=== PATIENT | female | born 1965 | race African-American/Black ===

== ENCOUNTER 2016-09-05 10:01 | Inpatient (IN) | payer OTHER ==
[2016-09-05 11:18] VITALS: BMI 25.7
--- NOTE | 2016-09-05 11:53 | HP ---
CIWA Score - CIWA Score Nausea/Vomitin Muscle Tremors: 3 Anxiety: 3 Agitation: 3 Paroxysmal Sweats: 2 Orientation: 0-Oriented Tacttile Disturbances: 2-Mild Itch/Numbness/Burn Auditory Disturbances: 2-Mild Harshness/Frighten Visual Disturbances: 2-Mild Sensitivity Headache: 2-Mild CIWA-Ar Total Score: 22 Admission ROS BHS - HPI Chief Complaint: i need help to stop drinking alcohol,cocaine dependence,heroin abused,mmtp Allergies/Adverse Reactions: Allergies Allergy/AdvReac Type Severity Reaction Status Date / Time No Known Allergies Allergy Verified 09/05/16 11:40 History of Present Illness: this 51 years old female with alcohol,cocaine dependence,heroin abused,mmtp 60 mgs/day,last medicated today, degenerative arthritis of right knee s/p artroscopic surgery of eight knee nicotine dependence hiv sine 2008 longest period of sobriety 19 years asthma ambulation with cane Exam Limitations: No Limitations - Ebola screening Have you traveled outside of the country in the last 21 days: No Have you had contact with anyone from an Ebola affected area: No Have you been sick,other than usual withdrawal symptoms: No Do you have a fever: No - Review of Systems Constitutional: Chills, Loss of Appetite, Malaise, Night Sweats, Changes in sleep, Weakness EENT: reports: Tearing, Nose Congestion Respiratory: reports: No Symptoms reported (asthma history) Cardiac: reports: No Symptoms Reported GI: reports: Diarrhea, Nausea, Vomiting, Abdominal cramping : reports: No Symptoms Reported Musculoskeletal: reports: Back Pain, Joint Pain, Muscle Pain, Joint Stiffness Integumentary: reports: Dryness Neuro: reports: Headache, Tremors Endocrine: reports: No Symptoms Reported Hematology: reports: No Symptoms Reported (hiv) Psychiatric: reports: No Sypmtoms Reported Patient History - Patient Medical History Hx Anemia: No Hx Asthma: Yes (on albuterol inhaler) Hx Chronic Obstructive Pulmonary Disease (COPD): No Hx Cancer: No Hx Cardiac Disorders: No Hx Congestive Heart Failure: No Hx Hypertension: No Hx Hypercholesterolemia: No HX Cerebrovascular Accident: No Hx Seizures: No Hx Dementia: No Hx Diabetes: No Hx Gastrointestinal Disorders: No Hx Liver Disease: No Hx Genitourinary Disorders: No Hx Sexually Transmitted Disorders: No Hx Renal Disease (ESRD): No Hx Thyroid Disease: No Hx Human Immunodeficiency Virus (HIV): Yes (since 2008) Hx Hepatitis C: Yes (treated) Hx Depression: No Hx Suicide Attempt: No Hx Bipolar Disorder: No Hx Schizophrenia: No Other Medical History: no suicidal,no homicidal,arthritis of right knee - Patient Surgical History Past Surgical History: Yes Hx Orthopedic Surgery: Yes (arthroscopc sugery of right knee) - PPD History Previous Implant?: Yes Documented Results: Negative w/o proof Implanted On Prior R Admission?: No PPD to be Administered?: Yes - Reproductive History Patient is a Female of Child Bearing Age (11 -55 yrs old): Yes Patient : No - Smoking Cessation Smoking history: Current every day smoker Have you smoked in the past 12 months: Yes Aproximately how many cigarettes per day: 7 Cigars Per Day: 0 Hx Chewing Tobacco Use: No Initiated information on smoking cessation: Yes 'Breaking Loose' booklet given: 09/05/16 - Substance & Tx. History Hx Alcohol Use: Yes Hx Substance Use: Yes Substance Use Type: Alcohol, Cocaine Hx Substance Use Treatment: Yes (1987) - Substances Abused Alcohol Route: Oral Frequency: Daily Amount used: 2 6PKS BEER Age of first use: 14 Date of Last Use: 09/04/16 Cocaine Route: Smoking Frequency: Daily Amount used: $80-100 Age of first use: 15 Date of Last Use: 09/04/16 Heroin Route: Injection Frequency: Daily Amount used: 2-3 BAGS Age of first use: 16 Date of Last Use: 09/04/16 Family Disease History - Family Disease History Family History: Denies Admission Physical Exam [facility] - Vital Signs Vital Signs: Vital Signs - 24 hr 09/05/16 11:11 Temperature 97.8 F Pulse Rate 74 Respiratory 18 Rate Blood Pressure 124/72 - Physical General Appearance: Yes: Tremorous, Irritable, Sweating, Anxious HEENTM: Yes: Nasal Congestion Respiratory: Yes: Lungs Clear Neck: Yes: Within Normal Limits Breast: Yes: Breast Exam Deferred Cardiology: Yes: Within Normal Limits, Regular Rhythm, Regular Rate, S1, S2 Abdominal: Yes: Within Normal Limits, Normal Bowel Sounds, Non Tender, Flat, Soft Genitourinary: Yes: Within Normal Limits Back: Yes: Muscle Spasm Musculoskeletal: Yes: Back pain, Joint Stiffness (a/p arthroscopic surgery of right knee for degenerativ earthritis), Muscle Pain Extremities: Yes: Tremors (degenerative srthritis of right knee ambulation with cane) 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: 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 NML intact, Fully Oriented, Alert, Motor Strength 5/5 Integumentary: Yes: Dry Lymphatic: Yes: Within Normal Limits - Diagnostic (1) Alcohol dependence with uncomplicated withdrawal Current Visit: Yes Status: Acute (2) Cocaine dependence Current Visit: Yes Status: Acute (3) Methadone maintenance therapy patient Current Visit: Yes Status: Acute (4) HIV (human immunodeficiency virus infection) Current Visit: Yes Status: Acute (5) Use of cane as ambulatory aid Current Visit: Yes Status: Acute (6) Hepatitis C Current Visit: Yes Status: Acute (7) Asthma Current Visit: Yes Status: Acute (8) Syncope Current Visit: Yes Status: Acute (9) Positive PPD, treated Current Visit: Yes Status: Acute (10) Frequent falls Current Visit: Yes Status: Acute (11) Degenerative arthritis of right knee Current Visit: Yes Status: Acute Cleared for Admission [facility] - Detox or Rehab [facility] Level of Care: Medically Managed Detox Regimen/Protocol: Librium [facility] Breath Alcohol Content Breath Alcohol Content: 0 Urine Pregancy Test - Result Urine Test Results: Negative- NO Line Present Urine Drug Screen - Results Drug Screen Negative: No Urine Drug Screen Results: ANSLEY-Cocaine, OPI-Opiates, BZO-Benzodiazepines, MTD- Methadone, TCA-Tricyclic Antidepress, OXY-Oxycodone
[2016-09-05] MEDS ORDERED: hydrOXYzine PAMOATE 50 MG CAPSULE (FP) PO PRN (12:08)
[2016-09-05] MEDS ORDERED: MAG HYDROX/AL HYDROX/SIMETH 30 ML UNIT-DOSE CUP PO PRN (12:08)
[2016-09-05] MEDS ORDERED: MAGNESIUM CITRATE 300 ML BOTTLE PO PRN (12:08)
[2016-09-05] MEDS ORDERED: MENTHOL/PHENOL 1 EACH UD MM PRN (12:08)
[2016-09-05] MEDS ORDERED: MAGNESIUM HYDROX 2400MG/30ML ORAL SUSPENSION 30 ML CUP PO PRN (12:08)
[2016-09-05] MEDS ORDERED: ACETAMINOPHEN 325 MG TABLET (FP) PO PRN (12:08)
[2016-09-05] MEDS ORDERED: P-EPHED 60MG/TRIPROLIDI 2.5MG TABLET PO PRN (12:08)
[2016-09-05] MEDS ORDERED: LOPERAMIDE HCL 2 MG CAPSULE PO PRN (12:08)
[2016-09-05] MEDS ORDERED: guaiFENesin/D-METHORPHAN HB 10 ML UNIT-DOSE CUPS PO PRN (12:08)
[2016-09-05] MEDS ORDERED: chlordiazePOXIDE HCL 25 MG CAPSULE PO PRN (12:08)
[2016-09-05] MEDS ORDERED: ALBUTEROL SO4 6.7 GM HFA INHALER IH PRN (12:26)
[2016-09-05] MEDS ORDERED: chlordiazePOXIDE HCL 25 MG CAPSULE PO ONE (14:16)
[2016-09-05] MEDS: IBUPROFEN 400 MG TABLET (FP) PO PRN (14:32)
[2016-09-05] MEDS: NICOTINE 21 MG/24 HOURS TOPICAL PATCH TD SCH (15:33)
[2016-09-05] MEDS: chlordiazePOXIDE HCL 25 MG CAPSULE PO SCH ×2 (17:48→22:12)
[2016-09-05 19:57] LABS: URINE APPEARANCE CLOUDY; URINE BILIRUBIN NEGATIVE (NEGATIVE); URINE BLOOD NEGATIVE (NEGATIVE); URINE COLOR AMBER; URINE GLUCOSE (UA) NEGATIVE (NEGATIVE); URINE KETONE NEGATIVE (NEGATIVE); URINE NITRITE NEGATIVE (NEGATIVE); URINE UROBILINOGEN NEGATIVE E.U./dl (0.2-1.0)
[2016-09-05 20:00] LABS: URINE LEUK ESTERASE TRACE (NEGATIVE); URINE PROTEIN 1+ (NEGATIVE)
[2016-09-05 20:06] LABS: CALCIUM OXALATE CRYSTALS RARE /hpf (NONE SEEN); URINE HYALINE CAST 25 /lpf; URINE MUCUS MANY; URINE RBC 1 /hpf (0-3); URINE WBC 20 /hpf (3-5)
[2016-09-05] MEDS: THIAMINE HCL 100 MG TABLET (FP) PO SCH (22:12)
[2016-09-06] MEDS ORDERED: METHADONE HCL 10 MG TABLET ONE (05:11)
[2016-09-06] MEDS ORDERED: METHADONE HCL 40 MG DISPERSABLE TABLET ONE (05:12)
[2016-09-06] MEDS ORDERED: METHADONE HCL 40 MG DISPERSABLE TABLET PO SCH (06:00)
[2016-09-06] MEDS: METHADONE 40 MG, METHADONE 20 MG PO SCH (07:37)
[2016-09-06] MEDS: chlordiazePOXIDE HCL 25 MG CAPSULE PO SCH ×4 (07:38→22:25)
[2016-09-06] MEDS: PRENATAL VITAMINS W/ FOLIC ACID TABLET (FP) PO SCH (10:33)
[2016-09-06] MEDS: NICOTINE 21 MG/24 HOURS TOPICAL PATCH TD SCH (10:33)
[2016-09-06] MEDS: EMTRICITAB/RILPIVIRINE/TENOFOV 1 EACH TABLET PO SCH (10:34)
--- NOTE | 2016-09-06 10:38 | EKG ---
Test Reason : Blood Pressure : / mmHG Vent. Rate : 058 BPM Atrial Rate : 058 BPM P-R Int : 150 ms QRS Dur : 080 ms QT Int : 392 ms P-R-T Axes : 072 040 039 degrees QTc Int : 384 ms POOR DATA QUALITY, INTERPRETATION MAY BE ADVERSELY AFFECTED SINUS BRADYCARDIA MINIMAL VOLTAGE CRITERIA FOR LVH, MAY BE NORMAL VARIANT NONSPECIFIC ST AND T WAVE ABNORMALITY ABNORMAL ECG NO PREVIOUS ECGS AVAILABLE Confirmed by TERESE HYATT, EITAN ([id number]) on 09/06/2016 10:37:57 AM Referred By: Reji Land Confirmed By:EITAN GUDINO MD
[2016-09-06 10:41] LABS: MCH 26.8 pg (25.7-33.7); MCHC 32.8 g/dl (32.0-36.0); MEAN CELL VOLUME 81.7 fl (80-96); PLATELET COUNT 236 K/MM3 (134-434); RDW 14.9 % (11.6-15.6); WHITE BLOOD COUNT 4.3 K/mm3 (4.0-10.0)
[2016-09-06 10:50] LABS: CALCIUM 8.8 mg/dL (8.5-10.1)
[2016-09-06 11:00] LABS: ALBUMIN 3.9 g/dl (3.4-5.0); BILIRUBIN,TOTAL 0.3 mg/dL (0.2-1.0); CREATININE 1.2 mg/dL (0.55-1.02); TOT PROT 8.1 g/dl (6.4-8.2)
--- NOTE | 2016-09-06 12:29 | PN ---
S CIWA - CIWA Score Nausea/Vomitin Muscle Tremors: 3 Anxiety: 3 Agitation: 3 Paroxysmal Sweats: 1-Minimal Palms Moist Orientation: 0-Oriented Tacttile Disturbances: 1-Very Mild Itch/Numbness Auditory Disturbances: 1-Very Mild Visual Disturbances: 1-Very Mild Sensitivity Headache: 2-Mild CIWA-Ar Total Score: 18 S Progress Note (SOAP) Subjective: ALERT,IRRITABLE,ANXIOUS,INTERRUPTED SLEEP,TREMOR,PAIN IN THE BODY,BACK Objective: 09/06/16 12:25 Vital Signs Temperature 97.7 F 09/06/16 10:22 Pulse Rate 82 09/06/16 10:22 Respiratory Rate 16 09/06/16 10:22 Blood Pressure 131/71 09/06/16 10:22 O2 Sat by Pulse Oximetry (%) EKG NSR,LVH, ARTEFACT,NON SPECIFIC T NO CHEST PAIN,NO SOB,NO DIZZINESS Laboratory Last Values WBC 4.3 K/mm3 (4.0-10.0) 09/06/16 06:00 RBC 4.79 M/mm3 (3.60-5.2) 09/06/16 06:00 Hgb 12.8 GM/dL (10.7-15.3) 09/06/16 06:00 Hct 39.1 % (32.4-45.2) 09/06/16 06:00 MCV 81.7 fl (80-96) 09/06/16 06:00 MCHC 32.8 g/dl (32.0-36.0) 09/06/16 06:00 RDW 14.9 % (11.6-15.6) 09/06/16 06:00 Plt Count 236 K/MM3 (134-434) 09/06/16 06:00 MPV 9.0 fl (7.5-11.1) 09/06/16 06:00 Sodium 138 mmol/L (136-145) 09/06/16 06:00 Potassium 3.9 mmol/L (3.5-5.1) 09/06/16 06:00 Chloride 104 mmol/L (98-107) 09/06/16 06:00 Carbon Dioxide 27 mmol/L (21-32) 09/06/16 06:00 Anion Gap 7 (8-16) L 09/06/16 06:00 BUN 17 mg/dL (7-18) 09/06/16 06:00 Creatinine 1.2 mg/dL (0.55-1.02) H 09/06/16 06:00 Creat Clearance w eGFR 46.99 (>60) 09/06/16 06:00 Random Glucose 115 mg/dL (74-106) H 09/06/16 06:00 Calcium 8.8 mg/dL (8.5-10.1) 09/06/16 06:00 Total Bilirubin 0.3 mg/dL (0.2-1.0) 09/06/16 06:00 AST 15 U/L (15-37) 09/06/16 06:00 ALT 20 U/L (12-78) 09/06/16 06:00 Alkaline Phosphatase 120 U/L (45-117) H 09/06/16 06:00 Total Protein 8.1 g/dl (6.4-8.2) 09/06/16 06:00 Albumin 3.9 g/dl (3.4-5.0) 09/06/16 06:00 Urine Color Karla 09/05/16 15:00 Urine Appearance Cloudy 09/05/16 15:00 Urine pH 5.0 (5.0-8.0) 09/05/16 15:00 Ur Specific [place] 1.026 (1.001-1.035) 09/05/16 15:00 Urine Protein 1+ (NEGATIVE) H 09/05/16 15:00 Urine Glucose (UA) Negative (NEGATIVE) 09/05/16 15:00 Urine Ketones Negative (NEGATIVE) 09/05/16 15:00 Urine Blood Negative (NEGATIVE) 09/05/16 15:00 Urine Nitrite Negative (NEGATIVE) 09/05/16 15:00 Urine Bilirubin Negative (NEGATIVE) 09/05/16 15:00 Urine Urobilinogen Negative E.U./dl (0.2-1.0) 09/05/16 15:00 Ur Leukocyte Esterase Trace (NEGATIVE) H 09/05/16 15:00 Urine RBC 1 /hpf (0-3) 09/05/16 15:00 Urine WBC 20 /hpf (3-5) 09/05/16 15:00 Ur Epithelial Cells Many /hpf (FEW) 09/05/16 15:00 Calcium Oxalate Crystal Rare /hpf (NONE SEEN) 09/05/16 15:00 Amorphous Urates Moderate /hpf (NONE SEEN) 09/05/16 15:00 Hyaline Casts 25 /lpf 09/05/16 15:00 Urine Mucus Many 09/05/16 15:00 RPR Titer Nonreactive (NONREACTIVE) 09/06/16 06:00 Assessment: 09/06/16 12:27 WITHDRAWAL SYMPTOM Plan: CONTINUE DETOX,ENCOURAGE ORAL FLUID,REPEAT UA,REPEAT CMP
[2016-09-06] MEDS: THIAMINE HCL 100 MG TABLET (FP) PO SCH (22:25)
[2016-09-07] MEDS ORDERED: METHADONE HCL 40 MG DISPERSABLE TABLET ONE (03:31)
[2016-09-07] MEDS ORDERED: METHADONE HCL 10 MG TABLET ONE (03:31)
[2016-09-07] MEDS: chlordiazePOXIDE HCL 25 MG CAPSULE PO SCH ×2 (06:14→10:06)
[2016-09-07] MEDS: METHADONE 40 MG, METHADONE 20 MG PO SCH (06:14)
[2016-09-07] MEDS: NICOTINE 21 MG/24 HOURS TOPICAL PATCH TD SCH (10:06)
[2016-09-07] MEDS: EMTRICITAB/RILPIVIRINE/TENOFOV 1 EACH TABLET PO SCH (10:06)
[2016-09-07] MEDS: PRENATAL VITAMINS W/ FOLIC ACID TABLET (FP) PO SCH (10:06)
[2016-09-07 10:56] LABS: ALBUMIN 3.3 g/dl (3.4-5.0); ALK PHOS 97 U/L (45-117); ANION GAP 10 (8-16); BILIRUBIN,TOTAL 0.3 mg/dL (0.2-1.0); CALCIUM 8.6 mg/dL (8.5-10.1); CO2 26 mmol/L (21-32); CREATININE 0.9 mg/dL (0.55-1.02); GLUCOSE,RANDOM 85 mg/dL (74-106); SGOT/AST 12 U/L (15-37); SGPT/ALT 16 U/L (12-78); TOT PROT 7.3 g/dl (6.4-8.2)
--- NOTE | 2016-09-07 13:04 | PN ---
S CIWA - CIWA Score Nausea/Vomitin Muscle Tremors: 3 Anxiety: 3 Agitation: 2 Paroxysmal Sweats: 1-Minimal Palms Moist Orientation: 0-Oriented Tacttile Disturbances: 1-Very Mild Itch/Numbness Auditory Disturbances: 1-Very Mild Visual Disturbances: 2-Mild Sensitivity Headache: 2-Mild CIWA-Ar Total Score: 18 BHS Progress Note (SOAP) Subjective: ALERT,IRRITABLE,ANXIOUS,INTERRUPTED SLEEP,TREMOR Objective: 09/07/16 13:03 Vital Signs Temperature 97.1 F L 09/07/16 10:29 Pulse Rate 82 09/07/16 10:29 Respiratory Rate 16 09/07/16 10:29 Blood Pressure 125/57 09/07/16 10:29 O2 Sat by Pulse Oximetry (%) Laboratory Last Values WBC 4.3 K/mm3 (4.0-10.0) 09/06/16 06:00 RBC 4.79 M/mm3 (3.60-5.2) 09/06/16 06:00 Hgb 12.8 GM/dL (10.7-15.3) 09/06/16 06:00 Hct 39.1 % (32.4-45.2) 09/06/16 06:00 MCV 81.7 fl (80-96) 09/06/16 06:00 MCHC 32.8 g/dl (32.0-36.0) 09/06/16 06:00 RDW 14.9 % (11.6-15.6) 09/06/16 06:00 Plt Count 236 K/MM3 (134-434) 09/06/16 06:00 MPV 9.0 fl (7.5-11.1) 09/06/16 06:00 Sodium 143 mmol/L (136-145) 09/07/16 08:00 Potassium 4.0 mmol/L (3.5-5.1) 09/07/16 08:00 Chloride 107 mmol/L (98-107) 09/07/16 08:00 Carbon Dioxide 26 mmol/L (21-32) 09/07/16 08:00 Anion Gap 10 (8-16) 09/07/16 08:00 BUN 12 mg/dL (7-18) D 09/07/16 08:00 Creatinine 0.9 mg/dL (0.55-1.02) D 09/07/16 08:00 Creat Clearance w eGFR > 60 (>60) 09/07/16 08:00 Random Glucose 85 mg/dL (74-106) D 09/07/16 08:00 Calcium 8.6 mg/dL (8.5-10.1) 09/07/16 08:00 Total Bilirubin 0.3 mg/dL (0.2-1.0) 09/07/16 08:00 AST 12 U/L (15-37) L 09/07/16 08:00 ALT 16 U/L (12-78) 09/07/16 08:00 Alkaline Phosphatase 97 U/L (45-117) 09/07/16 08:00 Total Protein 7.3 g/dl (6.4-8.2) 09/07/16 08:00 Albumin 3.3 g/dl (3.4-5.0) L 09/07/16 08:00 Urine Color Karla 09/05/16 15:00 Urine Appearance Cloudy 09/05/16 15:00 Urine pH 5.0 (5.0-8.0) 09/05/16 15:00 Ur Specific [place] 1.026 (1.001-1.035) 09/05/16 15:00 Urine Protein 1+ (NEGATIVE) H 09/05/16 15:00 Urine Glucose (UA) Negative (NEGATIVE) 09/05/16 15:00 Urine Ketones Negative (NEGATIVE) 09/05/16 15:00 Urine Blood Negative (NEGATIVE) 09/05/16 15:00 Urine Nitrite Negative (NEGATIVE) 09/05/16 15:00 Urine Bilirubin Negative (NEGATIVE) 09/05/16 15:00 Urine Urobilinogen Negative E.U./dl (0.2-1.0) 09/05/16 15:00 Ur Leukocyte Esterase Trace (NEGATIVE) H 09/05/16 15:00 Urine RBC 1 /hpf (0-3) 09/05/16 15:00 Urine WBC 20 /hpf (3-5) 09/05/16 15:00 Ur Epithelial Cells Many /hpf (FEW) 09/05/16 15:00 Calcium Oxalate Crystal Rare /hpf (NONE SEEN) 09/05/16 15:00 Amorphous Urates Moderate /hpf (NONE SEEN) 09/05/16 15:00 Hyaline Casts 25 /lpf 09/05/16 15:00 Urine Mucus Many 09/05/16 15:00 RPR Titer Nonreactive (NONREACTIVE) 09/06/16 06:00 Assessment: 09/07/16 13:04 WITHDRAWAL SYMPTOM Plan: CONTINUE DETOX,REPEAT UA TODAY
[2016-09-07] MEDS: chlordiazePOXIDE 5 MG CAPSULE PO SCH ×2 (18:06→22:18)
[2016-09-07] MEDS: THIAMINE HCL 100 MG TABLET (FP) PO SCH (22:18)
[2016-09-08] MEDS ORDERED: METHADONE HCL 10 MG TABLET ONE (05:07)
[2016-09-08] MEDS ORDERED: METHADONE HCL 40 MG DISPERSABLE TABLET ONE (05:08)
[2016-09-08] MEDS: METHADONE 40 MG, METHADONE 20 MG PO SCH (05:48)
[2016-09-08] MEDS: chlordiazePOXIDE 5 MG CAPSULE PO SCH ×2 (05:48→12:08)
[2016-09-08] MEDS: EMTRICITAB/RILPIVIRINE/TENOFOV 1 EACH TABLET PO SCH (10:37)
[2016-09-08] MEDS: PRENATAL VITAMINS W/ FOLIC ACID TABLET (FP) PO SCH (10:37)
[2016-09-08] MEDS: NICOTINE 21 MG/24 HOURS TOPICAL PATCH TD SCH (10:38)
[2016-09-08 11:05] LABS: URINE APPEARANCE CLOUDY; URINE BILIRUBIN NEGATIVE (NEGATIVE); URINE BLOOD NEGATIVE (NEGATIVE); URINE COLOR YELLOW; URINE GLUCOSE (UA) NEGATIVE (NEGATIVE); URINE KETONE NEGATIVE (NEGATIVE); URINE LEUK ESTERASE NEGATIVE (NEGATIVE); URINE NITRITE NEGATIVE (NEGATIVE); URINE PROTEIN NEGATIVE (NEGATIVE); URINE UROBILINOGEN NEGATIVE E.U./dl (0.2-1.0)
--- NOTE | 2016-09-08 11:06 | PN ---
BHS Progress Note (SOAP) Subjective: headache sweats shakes sleepy interrupted sleep Objective: 09/08/16 11:05 Vital Signs Temperature 97.7 F 09/08/16 10:25 Pulse Rate 81 09/08/16 10:25 Respiratory Rate 16 09/08/16 10:25 Blood Pressure 128/74 09/08/16 10:25 O2 Sat by Pulse Oximetry (%) Laboratory Tests 09/05/16 09/06/16 09/06/16 15:00 06:00 06:00 WBC 4.3 RBC 4.79 Hgb 12.8 Hct 39.1 MCV 81.7 MCHC 32.8 RDW 14.9 Plt Count 236 MPV 9.0 Sodium 138 Potassium 3.9 Chloride 104 Carbon Dioxide 27 Anion Gap 7 L BUN 17 Creatinine 1.2 H Creat Clearance w eGFR 46.99 Random Glucose 115 H Calcium 8.8 Total Bilirubin 0.3 AST 15 ALT 20 Alkaline Phosphatase 120 H Total Protein 8.1 Albumin 3.9 Urine Color Karla Urine Appearance Cloudy Urine pH 5.0 Ur Specific [place] 1.026 Urine Protein 1+ H Urine Glucose (UA) Negative Urine Ketones Negative Urine Blood Negative Urine Nitrite Negative Urine Bilirubin Negative Urine Urobilinogen Negative Ur Leukocyte Esterase Trace H Urine RBC 1 Urine WBC 20 Ur Epithelial Cells Many Calcium Oxalate Crystal Rare Amorphous Urates Moderate Hyaline Casts 25 Urine Mucus Many RPR Titer 09/06/16 09/07/16 06:00 08:00 WBC RBC Hgb Hct MCV MCHC RDW Plt Count MPV Sodium 143 Potassium 4.0 Chloride 107 Carbon Dioxide 26 Anion Gap 10 BUN 12 D Creatinine 0.9 D Creat Clearance w eGFR > 60 Random Glucose 85 D Calcium 8.6 Total Bilirubin 0.3 AST 12 L ALT 16 Alkaline Phosphatase 97 Total Protein 7.3 Albumin 3.3 L Urine Color Urine Appearance Urine pH Ur Specific [place] Urine Protein Urine Glucose (UA) Urine Ketones Urine Blood Urine Nitrite Urine Bilirubin Urine Urobilinogen Ur Leukocyte Esterase Urine RBC Urine WBC Ur Epithelial Cells Calcium Oxalate Crystal Amorphous Urates Hyaline Casts Urine Mucus RPR Titer Nonreactive awake/alert ambulating no acute distress Assessment: 09/08/16 11:05 withdrawal sx Plan: continue detox increase fluids
[2016-09-08] MEDS: chlordiazePOXIDE HCL 10 MG CAPSULE PO SCH ×2 (17:18→22:03)
[2016-09-08] MEDS: diphenhydrAMINE HCL 50 MG CAPSULE PO PRN (22:03)
[2016-09-08] MEDS: IBUPROFEN 400 MG TABLET (FP) PO PRN (22:03)
[2016-09-08] MEDS: THIAMINE HCL 100 MG TABLET (FP) PO SCH (22:03)
[2016-09-09] MEDS ORDERED: METHADONE HCL 40 MG DISPERSABLE TABLET ONE (05:08)
[2016-09-09] MEDS ORDERED: METHADONE HCL 10 MG TABLET ONE (05:08)
[2016-09-09] MEDS: chlordiazePOXIDE HCL 10 MG CAPSULE PO SCH ×2 (05:48→10:42)
[2016-09-09] MEDS: METHADONE 40 MG, METHADONE 20 MG PO SCH (05:49)
--- NOTE | 2016-09-09 09:00 | DS ---
[facility] Detox Discharge Summary Admission Date: 09/05/16 Discharge Date: 09/09/16 - History Present History: Alcohol Dependence, MMTP - Physical Exam Results Vital Signs: Vital Signs Temperature 96.3 F L 09/09/16 06:52 Pulse Rate 78 09/09/16 06:52 Respiratory Rate 18 09/09/16 06:52 Blood Pressure 102/75 09/09/16 06:52 O2 Sat by Pulse Oximetry (%) - Treatment Hospital Course: Detox Protocol Followed, Detoxed Safely, Responded well, Discharged Condition Good - Medication Discharge Medications: Ambulatory Orders Emtricitab/Rilpivirine/Tenofov [Complera -] 1 each PO DAILY 09/05/16 - Diagnosis (1) Alcohol dependence with uncomplicated withdrawal Current Visit: Yes Status: Chronic (2) Asthma Current Visit: Yes Status: Chronic Qualifiers: Asthma severity: mild intermittent (3) Cocaine dependence Current Visit: Yes Status: Acute (4) Degenerative arthritis of right knee Current Visit: Yes Status: Chronic Qualifiers: Osteoarthritis type: unspecified Qualified Code(s): M17.9 - Osteoarthritis of knee, unspecified (5) HIV (human immunodeficiency virus infection) Current Visit: Yes Status: Chronic (6) Hepatitis C Current Visit: Yes Status: Chronic Qualifiers: Hepatic coma status: without hepatic coma (7) Methadone maintenance therapy patient Current Visit: Yes Status: Acute (8) Use of cane as ambulatory aid Current Visit: Yes Status: Acute - AMA Did Patient Leave Against Medical Advice: No
[2016-09-09] MEDS: EMTRICITAB/RILPIVIRINE/TENOFOV 1 EACH TABLET PO SCH (10:11)
[2016-09-09] MEDS: PRENATAL VITAMINS W/ FOLIC ACID TABLET (FP) PO SCH (10:11)
[2016-09-09] MEDS: NICOTINE 21 MG/24 HOURS TOPICAL PATCH TD SCH (10:12)
--- NOTE | 2016-09-09 14:07 | HP ---
MELINDA HYATT Rehab Assess/Revision - Admission History Admitted to Rehab from: [address] Date of Admission to Rehab: 09/09/2016 - Vital signs Vital Signs: Vital Signs Period Temp Pulse Resp BP Sys/Avila Pulse Ox Last 24 Hr 96.3 F-100.0 F 78-87 16-20 102-152/56-84 - Findings Detox History & Physical reviewed: Yes Concur with findings: Yes
[2016-09-09] MEDS: LIDOCAINE 5% TOPICAL PATCH TP SCH (15:35)
[2016-09-09] MEDS: IBUPROFEN 600 MG TABLET (FP) PO PRN (15:36)
[2016-09-09] MEDS: TOLNAFTATE 1% CREAM 15 GM TUBE TP SCH (21:32)
[2016-09-09] MEDS: THIAMINE HCL 100 MG TABLET (FP) PO SCH (21:32)
[2016-09-10] MEDS ORDERED: METHADONE HCL 40 MG DISPERSABLE TABLET ONE (03:25)
[2016-09-10] MEDS ORDERED: METHADONE HCL 10 MG TABLET ONE (03:25)
[2016-09-10] MEDS: METHADONE 40 MG, METHADONE 20 MG PO SCH (06:25)
[2016-09-10] MEDS: IBUPROFEN 600 MG TABLET (FP) PO PRN (06:27)
--- NOTE | 2016-09-10 10:09 | HP ---
Psychiatrist Admission - Data Date of interview: 09/10/16 Admission source: [address] [place] [address] Identifying data: This is the first admission to [address] [place] [address] rehabilitation for this 42 yo single AA mother of 1 adult son,[place] [address],supported by [facility]. Medical History: HIV+,Hep C,BA,Degenerative arthritis of R knee,3 knee surgeries. Psychiatric History: denies Physical/Sexual Abuse/Trauma History: denies Vital Signs: Vital Signs - 24 hr 09/09/16 09/10/16 09/10/16 13:13 00:30 03:30 Temperature 97.9 F Pulse Rate 80 Respiratory 18 18 18 Rate Blood Pressure 118/70 09/10/16 07:22 Temperature 97.6 F Pulse Rate 75 Respiratory 18 Rate Blood Pressure 146/91 Allergies/Adverse Reactions: Allergies Allergy/AdvReac Type Severity Reaction Status Date / Time No Known Allergies Allergy Verified 09/05/16 11:40 Date of last physical exam: 09/05/16 Concur with the findings of this exam: Yes - Substance Abuse/Tx History Hx Alcohol Use: Yes (reports drinkling since 14 yo,heavy since 38 yo.Heineken / beer) Hx Substance Use: Yes (cocaine and heroin(IV & sniffing) since [age] yo,MMTP 60 mg daily) Substance Use Type: Alcohol, Cocaine, Heroin Hx Substance Use Treatment: Yes (completed 2 years of [facility] program in 1982- 1984) - Admission Criteria Previous failed treatment: Yes Poor recovery environment: Yes Comorbidities: Yes Lacks judgement: Yes Mental Status Exam - Mental Status Exam Alert and Oriented to: Time, Place, Person Cognitive Function: Grossly Intact Patient Appearance: Well Groomed Mood: Euthymic Affect: Mood Congruent Patient Behavior: Cooperative Speech Pattern: Clear Voice Loudness: Normal Thought Process: Goal Oriented Thought Disorder: Not Present Hallucinations: Denies Suicidal Ideation: Denies Homicidal Ideation: Denies Insight/Judgement: Fair Sleep: Fair Appetite: Fair Muscle strength/Tone: Normal Gait/Station: Antalgic Additional Comments: Ambulating with cane due to R knee pain. Psychiatric Findings - Problem List ([place] 1, 2,3) (1) Cocaine dependence Current Visit: Yes Status: Chronic (2) Methadone maintenance therapy patient Current Visit: Yes Status: Acute (3) Positive PPD, treated Current Visit: Yes Status: Suspected (4) Alcohol dependence with uncomplicated withdrawal Current Visit: Yes Status: Chronic (5) Asthma Current Visit: Yes Status: Chronic Qualifiers: Asthma severity: mild intermittent (6) Degenerative arthritis of right knee Current Visit: Yes Status: Chronic Qualifiers: Osteoarthritis type: unspecified Qualified Code(s): M17.9 - Osteoarthritis of knee, unspecified (7) HIV disease Current Visit: Yes Status: Chronic (8) Hep C w/o coma, chronic Current Visit: Yes Status: Inactive - Initial Treatment Plan Initial Treatment Plan: Will monitor progress.
[2016-09-10] MEDS: LIDOCAINE 5% TOPICAL PATCH TP SCH (10:10)
[2016-09-10] MEDS: PRENATAL VITAMINS W/ FOLIC ACID TABLET (FP) PO SCH (10:10)
[2016-09-10] MEDS: NICOTINE 21 MG/24 HOURS TOPICAL PATCH TD SCH (10:10)
[2016-09-10] MEDS: TOLNAFTATE 1% CREAM 15 GM TUBE TP SCH ×2 (10:11→21:32)
[2016-09-10] MEDS: EMTRICITAB/RILPIVIRINE/TENOFOV 1 EACH TABLET PO SCH (10:12)
[2016-09-10] MEDS: THIAMINE HCL 100 MG TABLET (FP) PO SCH (21:32)
[2016-09-10] MEDS: diphenhydrAMINE HCL 50 MG CAPSULE PO PRN (21:32)
[2016-09-11] MEDS ORDERED: PT OWN MED DRAWER 7, Y5N ONE (08:37)
[2016-09-11] MEDS: METHADONE HCL 10 MG TABLET PO SCH ×2 (10:12→21:35)
[2016-09-11] MEDS: PRENATAL VITAMINS W/ FOLIC ACID TABLET (FP) PO SCH (10:13)
[2016-09-11] MEDS: EMTRICITAB/RILPIVIRINE/TENOFOV 1 EACH TABLET PO SCH (10:13)
[2016-09-11] MEDS: LIDOCAINE 5% TOPICAL PATCH TP SCH (10:13)
[2016-09-11] MEDS: NICOTINE 21 MG/24 HOURS TOPICAL PATCH TD SCH (10:14)
[2016-09-11] MEDS: TOLNAFTATE 1% CREAM 15 GM TUBE TP SCH ×2 (10:15→23:22)
[2016-09-11] MEDS: THIAMINE HCL 100 MG TABLET (FP) PO SCH (21:35)
[2016-09-12] MEDS: PRENATAL VITAMINS W/ FOLIC ACID TABLET (FP) PO SCH (10:37)
[2016-09-12] MEDS: EMTRICITAB/RILPIVIRINE/TENOFOV 1 EACH TABLET PO SCH (10:37)
[2016-09-12] MEDS: METHADONE HCL 10 MG TABLET PO SCH ×2 (10:38→21:44)
[2016-09-12] MEDS: LIDOCAINE 5% TOPICAL PATCH TP SCH (10:39)
[2016-09-12] MEDS: NICOTINE 21 MG/24 HOURS TOPICAL PATCH TD SCH (10:39)
[2016-09-12] MEDS: TOLNAFTATE 1% CREAM 15 GM TUBE TP SCH ×2 (10:40→21:45)
[2016-09-12] MEDS: IBUPROFEN 600 MG TABLET (FP) PO PRN (10:41)
[2016-09-12] MEDS: THIAMINE HCL 100 MG TABLET (FP) PO SCH (21:44)
[2016-09-13] MEDS: METHADONE HCL 10 MG TABLET PO SCH ×2 (09:16→21:34)
[2016-09-13] MEDS: LIDOCAINE 5% TOPICAL PATCH TP SCH (09:16)
[2016-09-13] MEDS: NICOTINE 21 MG/24 HOURS TOPICAL PATCH TD SCH (09:17)
[2016-09-13] MEDS: EMTRICITAB/RILPIVIRINE/TENOFOV 1 EACH TABLET PO SCH (09:17)
[2016-09-13] MEDS: PRENATAL VITAMINS W/ FOLIC ACID TABLET (FP) PO SCH (09:17)
[2016-09-13] MEDS: TOLNAFTATE 1% CREAM 15 GM TUBE TP SCH ×2 (09:18→21:35)
[2016-09-13] MEDS ORDERED: PT OWN MED DRAWER 7, Y5N ONE (20:30)
[2016-09-13] MEDS: THIAMINE HCL 100 MG TABLET (FP) PO SCH (21:34)
[2016-09-14] MEDS: IBUPROFEN 600 MG TABLET (FP) PO PRN (02:32)
[2016-09-14] MEDS: METHADONE HCL 10 MG TABLET PO SCH ×2 (10:17→21:30)
[2016-09-14] MEDS: METHYL SALICYLATE/MENTHOL OINT 30 GM TUBE TP SCH ×2 (10:17→21:31)
[2016-09-14] MEDS: PRENATAL VITAMINS W/ FOLIC ACID TABLET (FP) PO SCH (10:18)
[2016-09-14] MEDS: LIDOCAINE 5% TOPICAL PATCH TP SCH (10:19)
[2016-09-14] MEDS: NICOTINE 21 MG/24 HOURS TOPICAL PATCH TD SCH (10:19)
[2016-09-14] MEDS: EMTRICITAB/RILPIVIRINE/TENOFOV 1 EACH TABLET PO SCH (10:19)
[2016-09-14] MEDS: TOLNAFTATE 1% CREAM 15 GM TUBE TP SCH ×2 (10:20→21:31)
[2016-09-14] MEDS ORDERED: PT OWN MED DRAWER 7, Y5N ONE (20:17)
[2016-09-14] MEDS: THIAMINE HCL 100 MG TABLET (FP) PO SCH (21:30)
[2016-09-14] MEDS: diphenhydrAMINE HCL 50 MG CAPSULE PO PRN (21:32)
[2016-09-15] MEDS ORDERED: PT OWN MED DRAWER 7, Y5N ONE (09:02)
[2016-09-15] MEDS: NICOTINE 21 MG/24 HOURS TOPICAL PATCH TD SCH (10:27)
[2016-09-15] MEDS: LIDOCAINE 5% TOPICAL PATCH TP SCH (10:28)
[2016-09-15] MEDS: EMTRICITAB/RILPIVIRINE/TENOFOV 1 EACH TABLET PO SCH (10:28)
[2016-09-15] MEDS: METHYL SALICYLATE/MENTHOL OINT 30 GM TUBE TP SCH ×2 (10:28→21:49)
[2016-09-15] MEDS: PRENATAL VITAMINS W/ FOLIC ACID TABLET (FP) PO SCH (10:29)
[2016-09-15] MEDS: METHADONE HCL 10 MG TABLET PO SCH ×2 (10:29→21:48)
[2016-09-15] MEDS: TOLNAFTATE 1% CREAM 15 GM TUBE TP SCH ×2 (10:29→21:49)
[2016-09-15] MEDS: THIAMINE HCL 100 MG TABLET (FP) PO SCH (21:45)
[2016-09-15] MEDS: diphenhydrAMINE HCL 50 MG CAPSULE PO PRN (21:49)
[2016-09-16] MEDS: METHYL SALICYLATE/MENTHOL OINT 30 GM TUBE TP SCH ×2 (10:35→23:19)
[2016-09-16] MEDS: PRENATAL VITAMINS W/ FOLIC ACID TABLET (FP) PO SCH (10:36)
[2016-09-16] MEDS: EMTRICITAB/RILPIVIRINE/TENOFOV 1 EACH TABLET PO SCH (10:36)
[2016-09-16] MEDS: METHADONE HCL 10 MG TABLET PO SCH ×2 (10:36→23:19)
[2016-09-16] MEDS: NICOTINE 21 MG/24 HOURS TOPICAL PATCH TD SCH (10:37)
[2016-09-16] MEDS: TOLNAFTATE 1% CREAM 15 GM TUBE TP SCH ×2 (10:37→23:20)
[2016-09-16] MEDS: LIDOCAINE 5% TOPICAL PATCH TP SCH (10:56)
--- NOTE | 2016-09-16 13:35 | PN ---
S Progress Note Note: EDEMA OF FEET & ANKLES ALSO C/O DRY ITCHY EYES. Vital Signs - 8 hr 09/16/16 07:02 Temperature 98.2 F Pulse Rate 69 Respiratory 18 Rate Blood Pressure 157/88 Laboratory Last Values WBC 4.3 K/mm3 (4.0-10.0) 09/06/16 06:00 RBC 4.79 M/mm3 (3.60-5.2) 09/06/16 06:00 Hgb 12.8 GM/dL (10.7-15.3) 09/06/16 06:00 Hct 39.1 % (32.4-45.2) 09/06/16 06:00 MCV 81.7 fl (80-96) 09/06/16 06:00 MCHC 32.8 g/dl (32.0-36.0) 09/06/16 06:00 RDW 14.9 % (11.6-15.6) 09/06/16 06:00 Plt Count 236 K/MM3 (134-434) 09/06/16 06:00 MPV 9.0 fl (7.5-11.1) 09/06/16 06:00 Sodium 143 mmol/L (136-145) 09/07/16 08:00 Potassium 4.0 mmol/L (3.5-5.1) 09/07/16 08:00 Chloride 107 mmol/L (98-107) 09/07/16 08:00 Carbon Dioxide 26 mmol/L (21-32) 09/07/16 08:00 Anion Gap 10 (8-16) 09/07/16 08:00 BUN 12 mg/dL (7-18) D 09/07/16 08:00 Creatinine 0.9 mg/dL (0.55-1.02) D 09/07/16 08:00 Creat Clearance w eGFR > 60 (>60) 09/07/16 08:00 Random Glucose 85 mg/dL (74-106) D 09/07/16 08:00 Calcium 8.6 mg/dL (8.5-10.1) 09/07/16 08:00 Total Bilirubin 0.3 mg/dL (0.2-1.0) 09/07/16 08:00 AST 12 U/L (15-37) L 09/07/16 08:00 ALT 16 U/L (12-78) 09/07/16 08:00 Alkaline Phosphatase 97 U/L (45-117) 09/07/16 08:00 Total Protein 7.3 g/dl (6.4-8.2) 09/07/16 08:00 Albumin 3.3 g/dl (3.4-5.0) L 09/07/16 08:00 Urine Color Yellow 09/08/16 08:00 Urine Appearance Cloudy 09/08/16 08:00 Urine pH 5.0 (5.0-8.0) 09/08/16 08:00 Ur Specific [place] 1.021 (1.001-1.035) 09/08/16 08:00 Urine Protein Negative (NEGATIVE) 09/08/16 08:00 Urine Glucose (UA) Negative (NEGATIVE) 09/08/16 08:00 Urine Ketones Negative (NEGATIVE) 09/08/16 08:00 Urine Blood Negative (NEGATIVE) 09/08/16 08:00 Urine Nitrite Negative (NEGATIVE) 09/08/16 08:00 Urine Bilirubin Negative (NEGATIVE) 09/08/16 08:00 Urine Urobilinogen Negative E.U./dl (0.2-1.0) 09/08/16 08:00 Ur Leukocyte Esterase Negative (NEGATIVE) 09/08/16 08:00 Urine RBC 1 /hpf (0-3) 09/05/16 15:00 Urine WBC 20 /hpf (3-5) 09/05/16 15:00 Ur Epithelial Cells Many /hpf (FEW) 09/05/16 15:00 Calcium Oxalate Crystal Rare /hpf (NONE SEEN) 09/05/16 15:00 Amorphous Urates Moderate /hpf (NONE SEEN) 09/05/16 15:00 Hyaline Casts 25 /lpf 09/05/16 15:00 Urine Mucus Many 09/05/16 15:00 RPR Titer Nonreactive (NONREACTIVE) 09/06/16 06:00 LABS NOTED,REPEAT U/A P : LASIX & ALDACTONE & VISINE
[2016-09-16] MEDS: FUROSEMIDE 40 MG TABLET (FP) PO SCH (14:22)
[2016-09-16] MEDS: TETRAHYDROZOLINE HCL 1 DROP DROPS OU SCH ×2 (15:28→23:20)
[2016-09-16] MEDS ORDERED: PT OWN MED DRAWER 7, Y5N ONE (18:28)
[2016-09-16] MEDS: SPIRONOLACTONE 25 MG TABLET (FP) PO SCH (23:19)
[2016-09-16] MEDS: THIAMINE HCL 100 MG TABLET (FP) PO SCH (23:20)
[2016-09-17] MEDS ORDERED: PT OWN MED DRAWER 7, Y5N ONE ×2 (08:51→13:36)
[2016-09-17] MEDS: METHYL SALICYLATE/MENTHOL OINT 30 GM TUBE TP SCH ×2 (10:28→21:12)
[2016-09-17] MEDS: PRENATAL VITAMINS W/ FOLIC ACID TABLET (FP) PO SCH (10:28)
[2016-09-17] MEDS: FUROSEMIDE 40 MG TABLET (FP) PO SCH (10:28)
[2016-09-17] MEDS: EMTRICITAB/RILPIVIRINE/TENOFOV 1 EACH TABLET PO SCH (10:28)
[2016-09-17] MEDS: SPIRONOLACTONE 25 MG TABLET (FP) PO SCH ×2 (10:29→18:12)
[2016-09-17] MEDS: LIDOCAINE 5% TOPICAL PATCH TP SCH (10:30)
[2016-09-17] MEDS: NICOTINE 21 MG/24 HOURS TOPICAL PATCH TD SCH (10:30)
[2016-09-17] MEDS: TOLNAFTATE 1% CREAM 15 GM TUBE TP SCH ×2 (10:31→21:15)
[2016-09-17] MEDS: TETRAHYDROZOLINE HCL 1 DROP DROPS OU SCH ×4 (10:32→21:16)
[2016-09-17] MEDS ORDERED: METHADONE HCL 10 MG TABLET PO ONE (11:01)
[2016-09-17 14:21] LABS: URINE APPEARANCE SLCLOUDY; URINE BILIRUBIN NEGATIVE (NEGATIVE); URINE BLOOD NEGATIVE (NEGATIVE); URINE COLOR YELLOW; URINE GLUCOSE (UA) NEGATIVE (NEGATIVE); URINE KETONE NEGATIVE (NEGATIVE); URINE NITRITE NEGATIVE (NEGATIVE); URINE PROTEIN NEGATIVE (NEGATIVE); URINE UROBILINOGEN NEGATIVE E.U./dl (0.2-1.0)
[2016-09-17 14:24] LABS: URINE LEUK ESTERASE TRACE (NEGATIVE)
[2016-09-17 14:32] LABS: URINE MUCUS RARE; URINE WBC 3 /hpf (3-5)
[2016-09-17] MEDS: METHADONE HCL 10 MG TABLET PO SCH (21:14)
[2016-09-17] MEDS: THIAMINE HCL 100 MG TABLET (FP) PO SCH (21:16)
[2016-09-17] MEDS: diphenhydrAMINE HCL 50 MG CAPSULE PO PRN (23:29)
[2016-09-18] MEDS: NICOTINE 21 MG/24 HOURS TOPICAL PATCH TD SCH (09:56)
[2016-09-18] MEDS: METHADONE HCL 10 MG TABLET PO SCH ×2 (09:57→21:06)
[2016-09-18] MEDS: FUROSEMIDE 40 MG TABLET (FP) PO SCH (09:57)
[2016-09-18] MEDS: LIDOCAINE 5% TOPICAL PATCH TP SCH (09:57)
[2016-09-18] MEDS: PRENATAL VITAMINS W/ FOLIC ACID TABLET (FP) PO SCH (09:57)
[2016-09-18] MEDS: SPIRONOLACTONE 25 MG TABLET (FP) PO SCH ×2 (09:57→18:24)
[2016-09-18] MEDS: METHYL SALICYLATE/MENTHOL OINT 30 GM TUBE TP SCH ×2 (09:57→21:08)
[2016-09-18] MEDS: TETRAHYDROZOLINE HCL 1 DROP DROPS OU SCH ×4 (09:58→21:07)
[2016-09-18] MEDS: EMTRICITAB/RILPIVIRINE/TENOFOV 1 EACH TABLET PO SCH (09:58)
[2016-09-18] MEDS: TOLNAFTATE 1% CREAM 15 GM TUBE TP SCH ×2 (09:58→21:07)
[2016-09-18] MEDS: THIAMINE HCL 100 MG TABLET (FP) PO SCH (21:07)
[2016-09-18] MEDS: diphenhydrAMINE HCL 50 MG CAPSULE PO PRN (21:09)
[2016-09-19] MEDS ORDERED: PT OWN MED DRAWER 7, Y5N ONE ×4 (09:22→20:10)
[2016-09-19] MEDS: METHADONE HCL 10 MG TABLET PO SCH ×2 (09:48→21:10)
[2016-09-19] MEDS: METHYL SALICYLATE/MENTHOL OINT 30 GM TUBE TP SCH ×2 (09:48→21:10)
[2016-09-19] MEDS: TOLNAFTATE 1% CREAM 15 GM TUBE TP SCH ×2 (09:49→21:11)
[2016-09-19] MEDS: LIDOCAINE 5% TOPICAL PATCH TP SCH (09:50)
[2016-09-19] MEDS: FUROSEMIDE 40 MG TABLET (FP) PO SCH (09:50)
[2016-09-19] MEDS: EMTRICITAB/RILPIVIRINE/TENOFOV 1 EACH TABLET PO SCH (09:50)
[2016-09-19] MEDS: SPIRONOLACTONE 25 MG TABLET (FP) PO SCH ×2 (09:51→17:54)
[2016-09-19] MEDS: PRENATAL VITAMINS W/ FOLIC ACID TABLET (FP) PO SCH (09:51)
[2016-09-19] MEDS: NICOTINE 21 MG/24 HOURS TOPICAL PATCH TD SCH (09:52)
[2016-09-19] MEDS: TETRAHYDROZOLINE HCL 1 DROP DROPS OU SCH ×4 (09:53→21:08)
--- NOTE | 2016-09-19 15:42 | PN ---
Psychiatric Progress Note Vital Signs: Vital Signs Period Temp Pulse Resp BP Sys/Avila Pulse Ox Last 24 Hr 97.7 F 66-76 16-16 142-170/76-80 Date of Session: 09/19/16 Chief Complaint:: Sidney not sleeping well HPI: Patient addressed Alcohol,Opioid and Cocaine dependence comorbid with Substanse induced mood/sleep disorder. ROS: Significant for hiv+,hep c,chronic arthritis. Current Medications: Active Medications Generic Name Dose Route Start Last Admin Trade Name Freq PRN Reason Stop Dose Admin Acetaminophen 650 mg 09/05/16 12:08 09/09/16 21:33 Tylenol - PO 650 mg Q4H PRN Administration FEVER OR PAIN Al Hydroxide/Mg Hydroxide 30 ml 09/05/16 12:08 Mylanta Oral Suspension - PO Q6H PRN DYSPEPSIA Albuterol Sulfate 2 puff 09/05/16 12:26 Ventolin Hfa Inhaler - IH Q4H PRN SHORT OF BREATH/WHEEZING Diphenhydramine HCl 50 mg 09/05/16 12:08 09/18/16 21:09 Benadryl - PO 50 mg HSMR1 PRN Administration INSOMNIA Emtricitabine/Rilpivirine/Tenofovir 1 each 09/06/16 10:00 09/19/16 09:50 Complera - PO 1 each DAILY DUTCH Administration Eucalyptus/Menthol/Phenol/Sorbitol 1 each 09/05/16 12:08 Cepastat Lozenge - MM Q4H PRN SORE THROAT Furosemide 40 mg 09/16/16 13:30 09/19/16 09:50 Lasix - PO 40 mg DAILY DUTCH Administration Guaifenesin 10 ml 09/05/16 12:08 Robitussin Dm - PO Q6H PRN COUGH Hydroxyzine Pamoate 50 mg 09/05/16 12:08 09/14/16 02:32 Vistaril - PO 50 mg Q4H PRN Administration AGITATION Ibuprofen 600 mg 09/09/16 14:08 09/14/16 02:32 Motrin - PO 600 mg Q6H PRN Administration SEVERE PAIN Lidocaine 1 patch 09/09/16 14:15 09/19/16 09:50 Lidoderm Patch - TP 1 patch DAILY DUTCH Administration Loperamide HCl 4 mg 09/05/16 12:08 Imodium - PO Q6H PRN DIARRHEA Magnesium Citrate 300 ml 09/05/16 12:08 Citroma - PO Q48H PRN CONSTIPATION Magnesium Hydroxide 30 ml 09/05/16 12:08 Milk Of Magnesia - PO DAILY PRN CONSTIPATION Methadone HCl 30 mg 09/17/16 22:00 09/19/16 09:48 Dolophine - PO 09/24/16 21:59 30 mg BID DUTCH Administration Methyl Salicylate 1 applic 09/14/16 10:00 09/19/16 09:48 Figueroa-Chowdhury - TP 1 applic BID DUTCH Administration Nicotine 21 mg 09/05/16 14:16 09/19/16 09:52 Nicoderm Patch - TD 21 mg DAILY DUTCH Administration Multivit/Folic Acid/Iron 1 tab 09/06/16 10:00 09/19/16 09:51 Vitamins (Sjr) - PO 1 tab DAILY DUTCH Administration Pseudoephedrine/Triprolidine 1 combo 09/05/16 12:08 Actifed - PO TID PRN NASAL CONGESTION Spironolactone 25 mg 09/16/16 18:00 09/19/16 09:51 Aldactone - PO 25 mg BID@1000,1800 DUTCH Administration Tetrahydrozoline HCl 1 drop 09/16/16 14:00 09/19/16 13:29 Visine - OU 1 drop QID DUTCH Administration Thiamine HCl 100 mg 09/05/16 22:00 09/18/16 21:07 Vitamin B1 - PO 100 mg HS DUTCH Administration Tolnaftate 1 applic 09/09/16 22:00 09/19/16 09:49 Tinactin 1% Cream - TP 1 applic BID DUTCH Administration Current Side Effect: No Lab tests ordered: No Lab tests reviewed: Yes Provider note:: Patient was evaluated today.She addressed ongoing sleeping difficulties,some anxiety due to lack of sleep,states that Benadryl 50 mg po hs is not really helping much.Properties of Trazodone has been discussed with the patient including benefits,side effects and dose adjustment .Trazodone 50 mg po hs will be started tonight. Supportive therapy provided. Total face to face time:: 30 Mental Status Exam - Mental Status Exam Alert and Oriented to: Time, Place, Person Cognitive Function: Grossly Intact Patient Appearance: Well Groomed Mood: Anxious Affect: Labile Patient Behavior: Cooperative Speech Pattern: Clear Voice Loudness: Normal Thought Process: Goal Oriented Thought Disorder: Not Present Hallucinations: Denies Suicidal Ideation: Denies Homicidal Ideation: Denies Insight/Judgement: Fair Sleep: Difficulty falling asleep Appetite: Good Muscle strength/Tone: Normal Gait/Station: Normal Psychiatric Treatment Plan - Problem List (1) Cocaine dependence Current Visit: Yes (2) Methadone maintenance therapy patient Current Visit: Yes (3) Positive PPD, treated Current Visit: Yes (4) Alcohol dependence with uncomplicated withdrawal Current Visit: Yes (5) Asthma Current Visit: Yes Qualifiers: Asthma severity: mild intermittent (6) Degenerative arthritis of right knee Current Visit: Yes Qualifiers: Osteoarthritis type: unspecified Qualified Code(s): M17.9 - Osteoarthritis of knee, unspecified (7) HIV disease Current Visit: Yes (8) Hep C w/o coma, chronic Current Visit: Yes
[2016-09-19] MEDS: THIAMINE HCL 100 MG TABLET (FP) PO SCH (21:07)
[2016-09-19] MEDS: traZODone HCL 50 MG TABLET (FP) PO SCH (21:07)
[2016-09-19] MEDS: diphenhydrAMINE HCL 50 MG CAPSULE PO PRN (21:10)
[2016-09-20] MEDS: EMTRICITAB/RILPIVIRINE/TENOFOV 1 EACH TABLET PO SCH (09:45)
[2016-09-20] MEDS: NICOTINE 21 MG/24 HOURS TOPICAL PATCH TD SCH (09:45)
[2016-09-20] MEDS: TOLNAFTATE 1% CREAM 15 GM TUBE TP SCH ×2 (09:45→21:11)
[2016-09-20] MEDS: FUROSEMIDE 40 MG TABLET (FP) PO SCH (09:45)
[2016-09-20] MEDS: PRENATAL VITAMINS W/ FOLIC ACID TABLET (FP) PO SCH (09:45)
[2016-09-20] MEDS: METHYL SALICYLATE/MENTHOL OINT 30 GM TUBE TP SCH ×2 (09:45→21:10)
[2016-09-20] MEDS: SPIRONOLACTONE 25 MG TABLET (FP) PO SCH ×2 (09:45→18:20)
[2016-09-20] MEDS: TETRAHYDROZOLINE HCL 1 DROP DROPS OU SCH ×4 (09:46→21:11)
[2016-09-20] MEDS: METHADONE HCL 10 MG TABLET PO SCH ×2 (09:46→21:10)
[2016-09-20] MEDS: LIDOCAINE 5% TOPICAL PATCH TP SCH (09:47)
[2016-09-20] MEDS: THIAMINE HCL 100 MG TABLET (FP) PO SCH (21:10)
[2016-09-20] MEDS: traZODone HCL 50 MG TABLET (FP) PO SCH (21:10)
[2016-09-20] MEDS: diphenhydrAMINE HCL 50 MG CAPSULE PO PRN (21:11)
[2016-09-21] MEDS: IBUPROFEN 600 MG TABLET (FP) PO PRN (07:16)
[2016-09-21] MEDS: PRENATAL VITAMINS W/ FOLIC ACID TABLET (FP) PO SCH (09:06)
[2016-09-21] MEDS: METHADONE HCL 10 MG TABLET PO SCH ×2 (09:06→21:08)
[2016-09-21] MEDS: EMTRICITAB/RILPIVIRINE/TENOFOV 1 EACH TABLET PO SCH (09:07)
[2016-09-21] MEDS: METHYL SALICYLATE/MENTHOL OINT 30 GM TUBE TP SCH ×2 (09:07→21:09)
[2016-09-21] MEDS: TETRAHYDROZOLINE HCL 1 DROP DROPS OU SCH ×4 (09:07→21:12)
[2016-09-21] MEDS: TOLNAFTATE 1% CREAM 15 GM TUBE TP SCH ×2 (09:07→21:11)
[2016-09-21] MEDS: NICOTINE 21 MG/24 HOURS TOPICAL PATCH TD SCH (09:08)
[2016-09-21] MEDS: FUROSEMIDE 40 MG TABLET (FP) PO SCH (09:12)
[2016-09-21] MEDS: SPIRONOLACTONE 25 MG TABLET (FP) PO SCH ×2 (09:13→18:20)
[2016-09-21] MEDS: LIDOCAINE 5% TOPICAL PATCH TP SCH (09:15)
[2016-09-21] MEDS: CYCLOBENZAPRINE HCL 10 MG TABLET (FP) PO PRN ×2 (12:37→21:10)
[2016-09-21] MEDS ORDERED: PT OWN MED DRAWER 7, Y5N ONE (12:53)
[2016-09-21] MEDS: THIAMINE HCL 100 MG TABLET (FP) PO SCH (21:08)
[2016-09-21] MEDS: traZODone HCL 50 MG TABLET (FP) PO SCH (21:08)
[2016-09-21] MEDS: diphenhydrAMINE HCL 50 MG CAPSULE PO PRN (21:11)
[2016-09-22] MEDS: NICOTINE 21 MG/24 HOURS TOPICAL PATCH TD SCH (09:54)
[2016-09-22] MEDS: EMTRICITAB/RILPIVIRINE/TENOFOV 1 EACH TABLET PO SCH (09:55)
[2016-09-22] MEDS: METHADONE HCL 10 MG TABLET PO SCH ×2 (09:55→21:18)
[2016-09-22] MEDS: FUROSEMIDE 40 MG TABLET (FP) PO SCH (09:55)
[2016-09-22] MEDS: PRENATAL VITAMINS W/ FOLIC ACID TABLET (FP) PO SCH (09:55)
[2016-09-22] MEDS: SPIRONOLACTONE 25 MG TABLET (FP) PO SCH ×2 (09:56→17:35)
[2016-09-22] MEDS: METHYL SALICYLATE/MENTHOL OINT 30 GM TUBE TP SCH ×2 (09:56→21:16)
[2016-09-22] MEDS: TETRAHYDROZOLINE HCL 1 DROP DROPS OU SCH ×4 (09:56→21:18)
[2016-09-22] MEDS: TOLNAFTATE 1% CREAM 15 GM TUBE TP SCH ×2 (09:56→21:18)
[2016-09-22] MEDS: LIDOCAINE 5% TOPICAL PATCH TP SCH (09:58)
[2016-09-22] MEDS: CYCLOBENZAPRINE HCL 10 MG TABLET (FP) PO PRN (12:44)
[2016-09-22] MEDS: THIAMINE HCL 100 MG TABLET (FP) PO SCH (21:16)
[2016-09-22] MEDS: diphenhydrAMINE HCL 50 MG CAPSULE PO PRN (21:16)
[2016-09-22] MEDS: traZODone HCL 50 MG TABLET (FP) PO SCH (21:16)
[2016-09-23] MEDS ORDERED: PT OWN MED DRAWER 7, Y5N ONE ×3 (08:42→20:30)
[2016-09-23] MEDS: NICOTINE 21 MG/24 HOURS TOPICAL PATCH TD SCH (10:00)
[2016-09-23] MEDS: LIDOCAINE 5% TOPICAL PATCH TP SCH (10:00)
[2016-09-23] MEDS: FUROSEMIDE 40 MG TABLET (FP) PO SCH (10:01)
[2016-09-23] MEDS: PRENATAL VITAMINS W/ FOLIC ACID TABLET (FP) PO SCH (10:01)
[2016-09-23] MEDS: EMTRICITAB/RILPIVIRINE/TENOFOV 1 EACH TABLET PO SCH (10:01)
[2016-09-23] MEDS: METHYL SALICYLATE/MENTHOL OINT 30 GM TUBE TP SCH ×2 (10:01→21:13)
[2016-09-23] MEDS: METHADONE HCL 10 MG TABLET PO SCH (10:02)
[2016-09-23] MEDS: SPIRONOLACTONE 25 MG TABLET (FP) PO SCH ×2 (10:03→17:55)
[2016-09-23] MEDS: TETRAHYDROZOLINE HCL 1 DROP DROPS OU SCH ×4 (10:04→21:11)
[2016-09-23] MEDS: TOLNAFTATE 1% CREAM 15 GM TUBE TP SCH ×2 (10:04→21:13)
[2016-09-23] MEDS ORDERED: METHADONE HCL 10 MG TABLET PO SCH (12:15)
[2016-09-23] MEDS: CYCLOBENZAPRINE HCL 10 MG TABLET (FP) PO PRN ×2 (12:58→21:10)
[2016-09-23] MEDS: NAPROXEN 500 MG TABLET (FP) PO SCH ×2 (12:58→21:09)
[2016-09-23] MEDS: THIAMINE HCL 100 MG TABLET (FP) PO SCH (21:09)
[2016-09-23] MEDS: traZODone HCL 50 MG TABLET (FP) PO SCH (21:09)
[2016-09-23] MEDS: diphenhydrAMINE HCL 50 MG CAPSULE PO PRN (21:10)
[2016-09-23] MEDS ORDERED: METHADONE HCL 5 MG TABLET ONE (21:11)
[2016-09-23] MEDS: METHADONE 20 MG, METHADONE 5 MG PO SCH (21:12)
[2016-09-23] MEDS ORDERED: METHADONE HCL 10 MG TABLET ONE (21:12)
[2016-09-24] MEDS ORDERED: METHADONE HCL 5 MG TABLET ONE (08:29)
[2016-09-24] MEDS ORDERED: METHADONE HCL 10 MG TABLET ONE (08:30)
[2016-09-24] MEDS: EMTRICITAB/RILPIVIRINE/TENOFOV 1 EACH TABLET PO SCH (09:57)
[2016-09-24] MEDS: FUROSEMIDE 40 MG TABLET (FP) PO SCH (09:57)
[2016-09-24] MEDS: NICOTINE 21 MG/24 HOURS TOPICAL PATCH TD SCH (09:57)
[2016-09-24] MEDS: NAPROXEN 500 MG TABLET (FP) PO SCH ×2 (09:57→21:18)
[2016-09-24] MEDS: TOLNAFTATE 1% CREAM 15 GM TUBE TP SCH ×2 (09:58→21:19)
[2016-09-24] MEDS: METHADONE 20 MG, METHADONE 5 MG PO SCH (09:58)
[2016-09-24] MEDS: TETRAHYDROZOLINE HCL 1 DROP DROPS OU SCH ×4 (09:58→21:19)
[2016-09-24] MEDS: SPIRONOLACTONE 25 MG TABLET (FP) PO SCH ×2 (09:58→18:20)
[2016-09-24] MEDS: METHYL SALICYLATE/MENTHOL OINT 30 GM TUBE TP SCH ×2 (09:58→21:18)
[2016-09-24] MEDS: PRENATAL VITAMINS W/ FOLIC ACID TABLET (FP) PO SCH (09:58)
[2016-09-24] MEDS: LIDOCAINE 5% TOPICAL PATCH TP SCH (09:59)
[2016-09-24] MEDS: CYCLOBENZAPRINE HCL 10 MG TABLET (FP) PO PRN (12:20)
[2016-09-24] MEDS: THIAMINE HCL 100 MG TABLET (FP) PO SCH (21:18)
[2016-09-24] MEDS: traZODone HCL 50 MG TABLET (FP) PO SCH (21:18)
[2016-09-25] MEDS: SPIRONOLACTONE 25 MG TABLET (FP) PO SCH ×2 (10:13→18:25)
[2016-09-25] MEDS: FUROSEMIDE 40 MG TABLET (FP) PO SCH (10:13)
[2016-09-25] MEDS: PRENATAL VITAMINS W/ FOLIC ACID TABLET (FP) PO SCH (10:13)
[2016-09-25] MEDS: EMTRICITAB/RILPIVIRINE/TENOFOV 1 EACH TABLET PO SCH (10:13)
[2016-09-25] MEDS: NAPROXEN 500 MG TABLET (FP) PO SCH ×2 (10:13→21:17)
[2016-09-25] MEDS: TETRAHYDROZOLINE HCL 1 DROP DROPS OU SCH ×4 (10:14→21:19)
[2016-09-25] MEDS: TOLNAFTATE 1% CREAM 15 GM TUBE TP SCH ×2 (10:16→21:19)
[2016-09-25] MEDS: METHYL SALICYLATE/MENTHOL OINT 30 GM TUBE TP SCH ×2 (10:16→21:19)
[2016-09-25] MEDS: LIDOCAINE 5% TOPICAL PATCH TP SCH (10:16)
[2016-09-25] MEDS: NICOTINE 21 MG/24 HOURS TOPICAL PATCH TD SCH (10:16)
[2016-09-25] MEDS: CYCLOBENZAPRINE HCL 10 MG TABLET (FP) PO PRN ×2 (12:51→21:20)
[2016-09-25] MEDS ORDERED: METHADONE HCL 10 MG TABLET PO SCH (13:30)
[2016-09-25] MEDS ORDERED: METHADONE HCL 5 MG TABLET ONE ×2 (14:02→19:38)
[2016-09-25] MEDS: METHADONE 20 MG, METHADONE 5 MG PO SCH ×2 (14:03→21:18)
[2016-09-25] MEDS ORDERED: METHADONE HCL 10 MG TABLET ONE ×2 (14:03→19:38)
[2016-09-25] MEDS: THIAMINE HCL 100 MG TABLET (FP) PO SCH (21:17)
[2016-09-25] MEDS: traZODone HCL 50 MG TABLET (FP) PO SCH (21:17)
[2016-09-25] MEDS: diphenhydrAMINE HCL 50 MG CAPSULE PO PRN (22:53)
[2016-09-26] MEDS ORDERED: METHADONE HCL 10 MG TABLET ONE ×2 (09:13→19:34)
[2016-09-26] MEDS ORDERED: METHADONE HCL 5 MG TABLET ONE ×2 (09:13→19:34)
[2016-09-26] MEDS ORDERED: PT OWN MED DRAWER 7, Y5N ONE (09:14)
[2016-09-26] MEDS: LIDOCAINE 5% TOPICAL PATCH TP SCH (10:06)
[2016-09-26] MEDS: EMTRICITAB/RILPIVIRINE/TENOFOV 1 EACH TABLET PO SCH (10:07)
[2016-09-26] MEDS: PRENATAL VITAMINS W/ FOLIC ACID TABLET (FP) PO SCH (10:07)
[2016-09-26] MEDS: FUROSEMIDE 40 MG TABLET (FP) PO SCH (10:07)
[2016-09-26] MEDS: NAPROXEN 500 MG TABLET (FP) PO SCH ×2 (10:07→21:13)
[2016-09-26] MEDS: NICOTINE 21 MG/24 HOURS TOPICAL PATCH TD SCH (10:07)
[2016-09-26] MEDS: METHADONE 20 MG, METHADONE 5 MG PO SCH ×2 (10:08→21:13)
[2016-09-26] MEDS: METHYL SALICYLATE/MENTHOL OINT 30 GM TUBE TP SCH ×2 (10:08→21:14)
[2016-09-26] MEDS: TETRAHYDROZOLINE HCL 1 DROP DROPS OU SCH ×4 (10:08→21:14)
[2016-09-26] MEDS: TOLNAFTATE 1% CREAM 15 GM TUBE TP SCH ×2 (10:09→21:14)
[2016-09-26] MEDS: SPIRONOLACTONE 25 MG TABLET (FP) PO SCH ×2 (10:10→18:53)
[2016-09-26] MEDS: CYCLOBENZAPRINE HCL 10 MG TABLET (FP) PO PRN ×2 (12:49→21:15)
[2016-09-26] MEDS: THIAMINE HCL 100 MG TABLET (FP) PO SCH (21:13)
[2016-09-26] MEDS: traZODone HCL 50 MG TABLET (FP) PO SCH (21:13)
[2016-09-26] MEDS: diphenhydrAMINE HCL 50 MG CAPSULE PO PRN (21:13)
[2016-09-27] MEDS ORDERED: METHADONE HCL 5 MG TABLET ONE (08:06)
[2016-09-27] MEDS ORDERED: METHADONE HCL 10 MG TABLET ONE (08:07)
[2016-09-27] MEDS ORDERED: PT OWN MED DRAWER 7, Y5N ONE (08:08)
[2016-09-27] MEDS: METHADONE 20 MG, METHADONE 5 MG PO SCH ×2 (09:55→21:07)
[2016-09-27] MEDS: PRENATAL VITAMINS W/ FOLIC ACID TABLET (FP) PO SCH (09:56)
[2016-09-27] MEDS: FUROSEMIDE 40 MG TABLET (FP) PO SCH (09:56)
[2016-09-27] MEDS: SPIRONOLACTONE 25 MG TABLET (FP) PO SCH ×2 (09:56→17:41)
[2016-09-27] MEDS: NAPROXEN 500 MG TABLET (FP) PO SCH ×2 (09:56→21:09)
[2016-09-27] MEDS: EMTRICITAB/RILPIVIRINE/TENOFOV 1 EACH TABLET PO SCH (09:57)
[2016-09-27] MEDS: TETRAHYDROZOLINE HCL 1 DROP DROPS OU SCH ×4 (09:57→21:10)
[2016-09-27] MEDS: NICOTINE 21 MG/24 HOURS TOPICAL PATCH TD SCH (09:57)
[2016-09-27] MEDS: LIDOCAINE 5% TOPICAL PATCH TP SCH (09:58)
[2016-09-27] MEDS: TOLNAFTATE 1% CREAM 15 GM TUBE TP SCH ×2 (09:59→21:10)
[2016-09-27] MEDS: METHYL SALICYLATE/MENTHOL OINT 30 GM TUBE TP SCH ×2 (09:59→21:10)
[2016-09-27] MEDS: CYCLOBENZAPRINE HCL 10 MG TABLET (FP) PO PRN ×2 (13:16→21:08)
[2016-09-27] MEDS: diphenhydrAMINE HCL 50 MG CAPSULE PO PRN (21:08)
[2016-09-27] MEDS: traZODone HCL 50 MG TABLET (FP) PO SCH (21:09)
[2016-09-27] MEDS: THIAMINE HCL 100 MG TABLET (FP) PO SCH (21:09)
[2016-09-28] MEDS: NICOTINE 21 MG/24 HOURS TOPICAL PATCH TD SCH (09:55)
[2016-09-28] MEDS: NAPROXEN 500 MG TABLET (FP) PO SCH ×2 (09:56→21:04)
[2016-09-28] MEDS: PRENATAL VITAMINS W/ FOLIC ACID TABLET (FP) PO SCH (09:56)
[2016-09-28] MEDS: FUROSEMIDE 40 MG TABLET (FP) PO SCH (09:56)
[2016-09-28] MEDS: EMTRICITAB/RILPIVIRINE/TENOFOV 1 EACH TABLET PO SCH (09:56)
[2016-09-28] MEDS: METHYL SALICYLATE/MENTHOL OINT 30 GM TUBE TP SCH ×2 (09:56→21:06)
[2016-09-28] MEDS: SPIRONOLACTONE 25 MG TABLET (FP) PO SCH ×2 (09:56→17:33)
[2016-09-28] MEDS: METHADONE 20 MG, METHADONE 5 MG PO SCH ×2 (09:57→21:06)
[2016-09-28] MEDS: LIDOCAINE 5% TOPICAL PATCH TP SCH (09:57)
[2016-09-28] MEDS: TETRAHYDROZOLINE HCL 1 DROP DROPS OU SCH ×4 (09:57→21:06)
[2016-09-28] MEDS: TOLNAFTATE 1% CREAM 15 GM TUBE TP SCH ×2 (09:57→21:06)
[2016-09-28] MEDS: CYCLOBENZAPRINE HCL 10 MG TABLET (FP) PO PRN ×2 (13:23→21:06)
[2016-09-28] MEDS: THIAMINE HCL 100 MG TABLET (FP) PO SCH (21:04)
[2016-09-28] MEDS: traZODone HCL 50 MG TABLET (FP) PO SCH (21:04)
[2016-09-28] MEDS: diphenhydrAMINE HCL 50 MG CAPSULE PO PRN (21:06)
[2016-09-28] MEDS ORDERED: PT OWN MED DRAWER 7, Y5N ONE (21:51)
[2016-09-29 07:38] VITALS: TEMP 97.7
[2016-09-29] MEDS: EMTRICITAB/RILPIVIRINE/TENOFOV 1 EACH TABLET PO SCH (09:01)
[2016-09-29] MEDS: NAPROXEN 500 MG TABLET (FP) PO SCH (09:01)
[2016-09-29] MEDS: TETRAHYDROZOLINE HCL 1 DROP DROPS OU SCH (09:01)
[2016-09-29] MEDS: METHYL SALICYLATE/MENTHOL OINT 30 GM TUBE TP SCH (09:01)
[2016-09-29] MEDS: FUROSEMIDE 40 MG TABLET (FP) PO SCH (09:01)
[2016-09-29] MEDS: LIDOCAINE 5% TOPICAL PATCH TP SCH (09:01)
[2016-09-29] MEDS: METHADONE 20 MG, METHADONE 5 MG PO SCH (09:02)
[2016-09-29] MEDS: SPIRONOLACTONE 25 MG TABLET (FP) PO SCH (09:02)
[2016-09-29] MEDS: PRENATAL VITAMINS W/ FOLIC ACID TABLET (FP) PO SCH (09:04)
[2016-09-29] MEDS: NICOTINE 21 MG/24 HOURS TOPICAL PATCH TD SCH (09:05)
[2016-09-29] MEDS: CYCLOBENZAPRINE HCL 10 MG TABLET (FP) PO PRN (09:08)
[2016-09-29 09:10] VITALS: BP 158/101; PULSE 96
--- NOTE | 2016-09-29 09:58 | PN ---
[id number] 71-98 16-16 150-167/87-101 Date of Session: 09/29/16 Chief Complaint:: Discharge visit. HPI: Patient addressed Alcohol,Cocaine and Opioid dependence comorbid with Substance induced sleep disorder.. ROS: Significant for Degenerative arthritis,HIV+,Hep C,BA. Current Side Effect: No Lab tests ordered: No Lab tests reviewed: Yes Provider note:: Patient completed this program today.She has met her treatment goals and will continue to address her issues on outpatient basis.She continues to find that current medications management helps her to reduce some insomnia, mood instability.Script for 30 days for Trazodone 50 mg po hs provided. Patient identifies areas of difficulties and ways,cooping skills she can utilzeto maintain recovery.Supportive therapy provided. PAtient is stable for discharge today. Total face to face time:: 30 Mental Status Exam - Mental Status Exam Alert and Oriented to: Time, Place, Person Cognitive Function: Grossly Intact Patient Appearance: Well Groomed Mood: Hopeful Affect: Appropriate, Mood Congruent Patient Behavior: Cooperative Speech Pattern: Clear Voice Loudness: Normal Thought Process: Goal Oriented Thought Disorder: Not Present Hallucinations: Denies Suicidal Ideation: Denies Homicidal Ideation: Denies Insight/Judgement: Fair Sleep: Fair Appetite: Good Muscle strength/Tone: Normal Gait/Station: Antalgic Psychiatric Treatment Plan - Problem List (5) Asthma Qualifiers: Asthma severity: mild intermittent (6) Degenerative arthritis of right knee Qualifiers: Osteoarthritis type: unspecified Qualified Code(s): M17.9 - Osteoarthritis of knee, unspecified
== END 2016-09-29 09:32 | disposition home or self-care (01) | DRG 895 ==
LOC: YASAS 10:01 → Y6N 12:01 → Y3E 09-09 11:26
PROVIDERS: ADMIT Internal Medicine; ATTEND Psychiatry & Neurology Psychiatry
PROC: HZ42ZZZ Group Counseling for Substance Abuse Treatment, Cognitive-Behavioral (ICD-10-PCS; principal; 2016-09-29)
DX: F11.20 Opioid dependence, uncomplicated (principal); F10.230 Alcohol dependence with withdrawal, uncomplicated; F14.20 Cocaine dependence, uncomplicated; B18.2 Chronic viral hepatitis C; R76.11 Nonspecific reaction to tuberculin skin test without active tuberculosis; M17.11 Unilateral primary osteoarthritis, right knee; Z21 Asymptomatic human immunodeficiency virus [HIV] infection status
CPT/HCPCS: 36415; 71020-TC; 80053; 81003; 81015; 85027; 86593; 93005; 93010

== ENCOUNTER 2018-05-19 14:01 | Inpatient (IN) | payer OTHER ==
[2018-05-19 15:11] VITALS: BMI 27.2
--- NOTE | 2018-05-19 20:10 | HP ---
COWS - Scale Resting Pulse: 1= [place] 81-100 Sweatin=Flushed/Facial Moisture Restless Observation: 1= Difficult to Sit Still Pupil Size: 0= Normal to Room Light Bone or Joint Aches: 4=Acute Joint/Muscle Pain Runny Nose/ Eye Tearin= Nasal Congestion GI Upset > 30mins: 1= Stomach Cramp Tremor Observation: 2= Slight Tremor Visible Yawning Observation: 0= None Anxiety or Irritability: 2=Irritable/Anxious Goose Flesh Skin: 3=Piloerection COWS Score: 17 CIWA Score - CIWA Score Nausea/Vomitin Muscle Tremors: 4-Moderate,w/Arms Extend Anxiety: 4-Mod. Anxious/Guarded Agitation: 1-Slight > Activity Paroxysmal Sweats: 3 Orientation: 0-Oriented Tacttile Disturbances: 1-Very Mild Itch/Numbness Auditory Disturbances: 0-None Visual Disturbances: 0-None Headache: 0-None Present CIWA-Ar Total Score: 15 Admission ROS S - HPI Chief Complaint: Heroine and alcohol withdrawal symptoms Allergies/Adverse Reactions: Allergies Allergy/AdvReac Type Severity Reaction Status Date / Time No Known Allergies Allergy Verified 05/19/18 18:02 History of Present Illness: 53 years old female with a long history of heroin and alcohol dependence is seeking admission to detox. Patient reports 19 years of sobriety and that her last detox was in August 2016 at [facility]. Patient has medical history of HIV+ ( on Complera), Hepatitis C ( treated with Harvoni), Depression, arthritis of right knee, Positive PPD and anxiety. She denies suicide attempt and suicidal ideation at this time. Patient is on Methadone 90mg tablet oral at [facility], last day medicated is today, May. Dose is yet to be confirmed by the nurse. Exam Limitations: No Limitations - Ebola screening Have you traveled outside of the country in the last 21 days: No (N) Have you had contact with anyone from an Ebola affected area: No Have you been sick,other than usual withdrawal symptoms: No Do you have a fever: No - Review of Systems Constitutional: Chills, Loss of Appetite, Malaise, Night Sweats EENT: reports: Nose Congestion Respiratory: reports: No Symptoms reported Cardiac: reports: No Symptoms Reported GI: reports: Nausea, Poor Appetite, Poor Fluid Intake, Abdominal cramping : reports: No Symptoms Reported Musculoskeletal: reports: Back Pain, Muscle Pain, Muscle Weakness Integumentary: reports: Dryness Neuro: reports: Tingling (fingers), Tremors Endocrine: reports: No Symptoms Reported Hematology: reports: No Symptoms Reported Psychiatric: reports: Orientated x3, Anxious, Depressed Other Systems: Reviewed and Negative Patient History - Patient Medical History Hx Anemia: No Hx Asthma: No Hx Chronic Obstructive Pulmonary Disease (COPD): No Hx Cancer: No Hx Cardiac Disorders: No Hx Congestive Heart Failure: No Hx Hypertension: No Hx Hypercholesterolemia: No HX Cerebrovascular Accident: No Hx Seizures: No Hx Dementia: No Hx Diabetes: No Hx Gastrointestinal Disorders: No Hx Liver Disease: No Hx Genitourinary Disorders: No Hx Sexually Transmitted Disorders: Yes (HIV+) Hx Renal Disease (ESRD): No Hx Thyroid Disease: No Hx Human Immunodeficiency Virus (HIV): Yes (Since 2008 - On Complera) Hx Hepatitis C: Yes (Treated with Harvoni) Hx Depression: Yes Hx Suicide Attempt: No (levy attempt and suicidal ideation at this time) Hx Bipolar Disorder: No Hx Schizophrenia: No Other Medical History: Anxiety - Not on medication - Patient Surgical History Past Surgical History: Yes Hx Neurologic Surgery: No Hx Cataract Extraction: No Hx Cardiac Surgery: No Hx Lung Surgery: No Hx Breast Surgery: No Hx Breast Biopsy: No Hx Abdominal Surgery: No Hx Appendectomy: No Hx Cholecystectomy: No Hx Genitourinary Surgery: No Hx Section: No Hx Orthopedic Surgery: Yes (arthroscopIc sugery of right knee 2009) Anesthesia Reaction: No - PPD History Previous Implant?: Yes Documented Results: Positive w/o proof - Reproductive History Last Menstrual Period: 04/28/18 Patient : No - Smoking Cessation Smoking history: Current every day smoker Have you smoked in the past 12 months: Yes Aproximately how many cigarettes per day: 4 Cigars Per Day: 0 Hx Chewing Tobacco Use: No Initiated information on smoking cessation: Yes 'Breaking Loose' booklet given: 05/19/18 - Substance & Tx. History Hx Alcohol Use: Yes Hx Substance Use: Yes Substance Use Type: Alcohol, Cocaine, Heroin - Substances Abused Cocaine Route: Smoking Frequency: 3-6 times per week Amount used: $30 Age of first use: 15 Date of Last Use: 05/18/18 Heroin Route: Inhalation Frequency: 1-3 times last 30 days Amount used: $10 Age of first use: 15 Date of Last Use: 05/15/18 Alcohol Route: Oral Frequency: Daily Amount used: 1/2 pint of vodka, 2 40 ounces of beer Age of first use: 15 Date of Last Use: 05/19/18 Family Disease History - Family Disease History Family History: Denies Admission Physical Exam [facility] - Vital Signs Vital Signs: Vital Signs - 24 hr 05/19/18 15:05 Temperature 96.2 F L Pulse Rate 81 Respiratory 20 Rate Blood Pressure 140/73 - Physical General Appearance: Yes: Moderate Distress, Tremorous, Irritable, Sweating, Anxious HEENTM: Yes: EOMI, Normal ENT Inspection, Normocephalic, Normal Voice, DEEPTI Respiratory: Yes: Lungs Clear, Normal Breath Sounds, No Respiratory Distress Neck: Yes: Supple Breast: Yes: Breast Exam Deferred Cardiology: Yes: Regular Rhythm, Regular Rate Abdominal: Yes: Normal Bowel Sounds, Soft Genitourinary: Yes: Within Normal Limits Musculoskeletal: Yes: Back pain, Muscle Pain, Muscle weakness Extremities: Yes: Tremors 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: Yes: Alert, Normal Mood/Affect Integumentary: Yes: Warm Lymphatic: Yes: Within Normal Limits - Diagnostic (1) Methadone maintenance therapy patient Current Visit: Yes Status: Chronic (2) Use of cane as ambulatory aid Current Visit: Yes Status: Chronic (3) Alcohol dependence with uncomplicated withdrawal Current Visit: Yes Status: Chronic (4) Cocaine dependence Current Visit: Yes Status: Chronic Qualifiers: Substance use status: uncomplicated Qualified Code(s): F14.20 - Cocaine dependence, uncomplicated (5) Degenerative arthritis of right knee Current Visit: Yes Status: Chronic Qualifiers: Osteoarthritis type: unspecified Qualified Code(s): M17.11 - Unilateral primary osteoarthritis, right knee (6) HIV (human immunodeficiency virus infection) Current Visit: Yes Status: Chronic (7) Hepatitis C Current Visit: Yes Status: Suspected Qualifiers: Hepatic coma status: without hepatic coma (8) Positive PPD, treated Current Visit: No Status: Chronic Cleared for Admission [facility] - Detox or Rehab [facility] Level of Care: Medically Managed Detox Regimen/Protocol: Librium [facility] Breath Alcohol Content Breath Alcohol Content: 0.018 Urine Pregancy Test - Result Urine Test Results: Negative- NO Line Present Urine Drug Screen - Results Drug Screen Negative: No Urine Drug Screen Results: ANSLEY-Cocaine, OPI-Opiates, MTD-Methadone
[2018-05-19] MEDS ORDERED: guaiFENesin/D-METHORPHAN HB 10 ML UNIT-DOSE CUPS PO PRN (20:26)
[2018-05-19] MEDS ORDERED: LOPERAMIDE HCL 2 MG CAPSULE PO PRN (20:26)
[2018-05-19] MEDS ORDERED: ACETAMINOPHEN 325 MG TABLET (FP) PO PRN (20:26)
[2018-05-19] MEDS ORDERED: chlordiazePOXIDE HCL 25 MG CAPSULE PO PRN (20:26)
[2018-05-19] MEDS ORDERED: MAG HYDROX/AL HYDROX/SIMETH 30 ML UNIT-DOSE CUP PO PRN (20:26)
[2018-05-19] MEDS ORDERED: MAGNESIUM CITRATE 300 ML BOTTLE PO PRN (20:26)
[2018-05-19] MEDS ORDERED: MENTHOL/PHENOL 1 EACH UD MM PRN (20:26)
[2018-05-19] MEDS ORDERED: MAGNESIUM HYDROX 2400MG/30ML ORAL SUSPENSION 30 ML CUP PO PRN (20:26)
[2018-05-19] MEDS ORDERED: NICOTINE POLACRILEX 2 MG GUM BUC PRN (20:26)
[2018-05-19] MEDS ORDERED: P-EPHED 60MG/TRIPROLIDI 2.5MG TABLET PO PRN (20:26)
[2018-05-19] MEDS ORDERED: MELATONIN 5 MG TABLETS PO PRN (22:00)
[2018-05-19] MEDS: THIAMINE HCL 100 MG TABLET (FP) PO SCH (23:23)
[2018-05-19] MEDS: chlordiazePOXIDE HCL 25 MG CAPSULE PO SCH (23:23)
[2018-05-20] MEDS: chlordiazePOXIDE HCL 25 MG CAPSULE PO SCH ×4 (06:18→22:56)
[2018-05-20] MEDS ORDERED: METHADONE HCL 10 MG TABLET PO ONE (09:07)
[2018-05-20] MEDS ORDERED: METHADONE 80 MG, METHADONE 10 MG PO ONE (09:15)
--- NOTE | 2018-05-20 09:28 | CONSULT ---
[facility] Psychiatric Consult - Data Date of interview: 05/19/18 Admission source: [facility] Identifying data: Patient is a 53 year old single female, mother of one, unemployed, domiciled, and is supported by [facility]. This is one of multiple admissions for patient. Pt. admitted to for alcohol and cocaine dependence. Substance Abuse History: Smoking Cessation. Smoking history: Current every day smoker. Have you smoked in the past 12 months: Yes. Aproximately how many cigarettes per day: 4. Cigars Per Day: 0. Hx Chewing Tobacco Use: No. Initiated information on smoking cessation: Yes. 'Breaking Loose' booklet given : 05/19/18. - Substance & Tx. History. Hx Alcohol Use: Yes. Hx Substance Use : Yes. Substance Use Type: Alcohol, Cocaine, Heroin. - Substances Abused. Cocaine. Route: Smoking. Frequency: 3-6 times per week. Amount used: $30. Age of first use: 15. Date of Last Use: 05/18/18. Heroin. Route: Inhalation. Frequency: 1-3 times last 30 days. Amount used: $10. Age of first use: 15. Date of Last Use: 05/15/18. Alcohol. Route: Oral. Frequency: Daily. Amount used: 1/2 pint of vodka, 2 40 ounces of beer. Age of first use: 15. Date of Last Use: 05/19/18 Medical History: arthroscopIc sugery of right knee 2009, HIV Psychiatric History: Patient denies h/o psychiatric hospitalization, outpatient care, and suicide attempt. Reports taking zoloft while in detox at [facility] but stopped taking medication after continuing her drug use. Patient is currently on Methadone maintenance of 90mg at [facility]. Physical/Sexual Abuse/Trauma History: denies. Mental Status Exam - Mental Status Exam Alert and Oriented to: Time, Place, Person Cognitive Function: Good Patient Appearance: Well Groomed Mood: Withdrawn, Euthymic Affect: Mood Congruent Patient Behavior: Cooperative Speech Pattern: Appropriate Voice Loudness: Moderately Soft/Quiet Thought Process: Intact, Goal Oriented Thought Disorder: Not Present Hallucinations: Denies Suicidal Ideation: Denies Homicidal Ideation: Denies Insight/Judgement: Poor Sleep: Fair Appetite: Fair Muscle strength/Tone: Normal Gait/Station: Other (Patient ambulates with a rolling walker.) Psychiatric Findings - Problem List ([place] 1, 2,3) (1) Alcohol dependence with uncomplicated withdrawal Current Visit: Yes Status: Acute (2) Cocaine dependence Current Visit: Yes Status: Chronic Qualifiers: Substance use status: uncomplicated Qualified Code(s): F14.20 - Cocaine dependence, uncomplicated (3) Methadone maintenance therapy patient Current Visit: Yes Status: Chronic (4) Substance induced mood disorder Current Visit: Yes Status: Acute - Initial Treatment Plan Initial Treatment Plan: Psychoeducation provided. Detoxification in progres. Will order zoloft 50mg. Benefits and side effects discussed. Verbal consent given.
[2018-05-20] MEDS ORDERED: METHADONE HCL 40 MG DISPERSABLE TABLET ONE (09:41)
[2018-05-20] MEDS ORDERED: METHADONE HCL 10 MG TABLET ONE (09:42)
--- NOTE | 2018-05-20 09:59 | EKG ---
Test Reason : Blood Pressure : / mmHG Vent. Rate : 063 BPM Atrial Rate : 063 BPM P-R Int : 146 ms QRS Dur : 080 ms QT Int : 444 ms P-R-T Axes : 076 046 054 degrees QTc Int : 454 ms NORMAL SINUS RHYTHM VOLTAGE CRITERIA FOR LEFT VENTRICULAR HYPERTROPHY ABNORMAL ECG WHEN COMPARED WITH ECG OF 05-SEP-2016 14:23, NONSPECIFIC T WAVE ABNORMALITY NO LONGER EVIDENT IN LATERAL LEADS QT HAS LENGTHENED Confirmed by TERESE HYATT, EITAN ([id number]) on 05/20/2018 9:59:24 AM Referred By: Confirmed By:EITAN GUDINO MD
[2018-05-20 10:21] LABS: HEMATOCRIT 36.9 % (32.4-45.2); HEMOGLOBIN 11.9 GM/dL (10.7-15.3); MCH 26.2 pg (25.7-33.7); MCHC 32.4 g/dl (32.0-36.0); MEAN PLT VOLUME 8.3 fl (7.5-11.1); PLATELET COUNT 235 K/MM3 (134-434); RBC 4.55 M/mm3 (3.60-5.2); RDW 15.5 % (11.6-15.6); WHITE BLOOD COUNT 3.8 K/mm3 (4.0-10.0)
[2018-05-20] MEDS: PRENATAL VITAMINS W/ FOLIC ACID TABLET (FP) PO SCH (10:32)
[2018-05-20] MEDS: NICOTINE 14 MG/24 HOURS TOPICAL PATCH TD SCH (10:32)
[2018-05-20 12:01] LABS: ALBUMIN 3.4 g/dl (3.4-5.0); ALK PHOS 139 U/L (45-117); ANION GAP 5 MMOL/L (8-16); BILIRUBIN,TOTAL 0.3 mg/dL (0.2-1); BLOOD UREA NITROGEN 16 mg/dL (7-18); CALCIUM 9.2 mg/dL (8.5-10.1); CHLORIDE 108 mmol/L (98-107); CO2 29 mmol/L (21-32); CREATININE 0.9 mg/dL (0.55-1.3); GLUCOSE,RANDOM 87 mg/dL (74-106); POTASSIUM 4.3 mmol/L (3.5-5.1); SGOT/AST 24 U/L (15-37); SGPT/ALT 19 U/L (13-61); SODIUM 142 mmol/L (136-145); TOT PROT 7.5 g/dl (6.4-8.2)
--- NOTE | 2018-05-20 12:01 | PN ---
[facility] CIWA - CIWA Score Nausea/Vomitin-Mild Nausea/No Vomiting Muscle Tremors: 4-Moderate,w/Arms Extend Anxiety: 4-Mod. Anxious/Guarded Agitation: 3 Paroxysmal Sweats: 1-Minimal Palms Moist Orientation: 0-Oriented Tacttile Disturbances: 1-Very Mild Itch/Numbness Auditory Disturbances: 0-None Visual Disturbances: 0-None Headache: 0-None Present CIWA-Ar Total Score: 14 [facility] COWS - Scale Resting Pulse: 0= [place] 80 or Below Sweatin= Chills/Flushing Restless Observation: 1= Difficult to Sit Still Pupil Size: 0= Normal to Room Light Bone or Joint Aches: 2= Severe Diffuse Aches Runny Nose/ Eye Tearin= Runny Nose/Eyes GI Upset > 30mins: 2= Nausea/Diarrhea Tremor Observation of Outstretched Hands: 2= Slight Tremor Visible Yawning Observation: 2= >3x During Session Anxiety or Irritability: 2=Irritable/Anxious Goose Flesh Skin: 0=Smooth Skin COWS Score: 14 [facility] Progress Note (SOAP) Subjective: right knee pain scheduled for surgery ambulate with walker sweat tremor muscle cramping Objective: 05/20/18 12:00 Vital Signs Temperature 97.5 F L 05/20/18 10:16 Pulse Rate 71 05/20/18 10:16 Respiratory Rate 16 05/20/18 10:16 Blood Pressure 153/84 05/20/18 10:16 O2 Sat by Pulse Oximetry (%) Laboratory Last Values WBC 3.8 K/mm3 (4.0-10.0) L 05/20/18 07:00 RBC 4.55 M/mm3 (3.60-5.2) 05/20/18 07:00 Hgb 11.9 GM/dL (10.7-15.3) 05/20/18 07:00 Hct 36.9 % (32.4-45.2) 05/20/18 07:00 MCV 81.0 fl (80-96) 05/20/18 07:00 MCH 26.2 pg (25.7-33.7) 05/20/18 07:00 MCHC 32.4 g/dl (32.0-36.0) 05/20/18 07:00 RDW 15.5 % (11.6-15.6) 05/20/18 07:00 Plt Count 235 K/MM3 (134-434) 05/20/18 07:00 MPV 8.3 fl (7.5-11.1) 05/20/18 07:00 RPR Titer Nonreactive (NONREACTIVE) 05/20/18 07:00 lab noted Assessment: 05/20/18 12:01 withdrawal sx Plan: continue detox
[2018-05-20] MEDS: IBUPROFEN 400 MG TABLET (FP) PO PRN (22:54)
[2018-05-20] MEDS: THIAMINE HCL 100 MG TABLET (FP) PO SCH (22:56)
[2018-05-21] MEDS ORDERED: METHADONE HCL 10 MG TABLET ONE (05:43)
[2018-05-21] MEDS ORDERED: METHADONE HCL 40 MG DISPERSABLE TABLET ONE (05:43)
[2018-05-21] MEDS ORDERED: METHADONE HCL 10 MG TABLET PO SCH (06:00)
[2018-05-21] MEDS: METHADONE 80 MG, METHADONE 10 MG PO SCH (06:29)
[2018-05-21] MEDS: chlordiazePOXIDE HCL 25 MG CAPSULE PO SCH ×3 (06:32→21:56)
[2018-05-21 10:13] LABS: URINE APPEARANCE SLCLOUDY; URINE BILIRUBIN NEGATIVE (<2.0 mg/dL); URINE COLOR DKYELLOW; URINE GLUCOSE (UA) NEGATIVE (NEGATIVE); URINE KETONE NEGATIVE (NEGATIVE); URINE NITRITE POSITIVE (NEGATIVE); URINE PROTEIN NEGATIVE (NEGATIVE); URINE UROBILINOGEN NEGATIVE mg/dL (0.2-1.0)
[2018-05-21 10:21] LABS: URINE LEUK ESTERASE 2+ (NEGATIVE)
[2018-05-21 10:32] LABS: EPI CELLS FEW /HPF (FEW); URINE BACTERIA MANY /hpf (NONE SEEN); URINE MUCUS RARE
[2018-05-21] MEDS: PRENATAL VITAMINS W/ FOLIC ACID TABLET (FP) PO SCH (11:40)
[2018-05-21] MEDS: NICOTINE 14 MG/24 HOURS TOPICAL PATCH TD SCH (11:40)
--- NOTE | 2018-05-21 13:40 | PN ---
[facility] CIWA - CIWA Score Nausea/Vomitin-No Nausea/No Vomiting Muscle Tremors: None Anxiety: 1-Mildly Anxious Agitation: 0-Normal Activity Paroxysmal Sweats: No Perspiration Orientation: 0-Oriented Tacttile Disturbances: 0-None Auditory Disturbances: 0-None Visual Disturbances: 0-None Headache: 0-None Present CIWA-Ar Total Score: 1 [facility] COWS - Scale Resting Pulse: 0= [place] 80 or Below Sweatin= No chills or Flushing Restless Observation: 0= Sits Still Pupil Size: 0= Normal to Room Light Bone or Joint Aches: 1= Mild Discomfort Runny Nose/ Eye Tearin= None GI Upset > 30mins: 0= None Tremor Observation of Outstretched Hands: 0= None Yawning Observation: 0= None Anxiety or Irritability: 0= None Goose Flesh Skin: 0=Smooth Skin COWS Score: 1 [facility] Progress Note (SOAP) Subjective: PATIENT PRESENTS WITH MILD BODY ACHES AND ANXIETY. Objective: 05/21/18 13:39 Vital Signs Temperature 98.4 F 05/21/18 13:34 Pulse Rate 66 05/21/18 13:34 Respiratory Rate 16 05/21/18 13:34 Blood Pressure 123/55 L 05/21/18 13:34 O2 Sat by Pulse Oximetry (%) Laboratory Tests 05/20/18 05/20/18 05/20/18 07:00 07:00 07:00 WBC 3.8 L RBC 4.55 Hgb 11.9 Hct 36.9 MCV 81.0 MCH 26.2 MCHC 32.4 RDW 15.5 Plt Count 235 MPV 8.3 Sodium 142 Potassium 4.3 Chloride 108 H Carbon Dioxide 29 Anion Gap 5 L BUN 16 Creatinine 0.9 Creat Clearance w eGFR > 60 Random Glucose 87 Calcium 9.2 Total Bilirubin 0.3 AST 24 ALT 19 Alkaline Phosphatase 139 H Total Protein 7.5 Albumin 3.4 Urine Color Urine Appearance Urine pH Ur Specific [place] Urine Protein Urine Glucose (UA) Urine Ketones Urine Blood Urine Nitrite Urine Bilirubin Urine Urobilinogen Ur Leukocyte Esterase Urine WBC (Auto) Urine RBC (Auto) Ur Epithelial Cells Urine Bacteria Urine Mucus RPR Titer Nonreactive 05/21/18 07:00 WBC RBC Hgb Hct MCV MCH MCHC RDW Plt Count MPV Sodium Potassium Chloride Carbon Dioxide Anion Gap BUN Creatinine Creat Clearance w eGFR Random Glucose Calcium Total Bilirubin AST ALT Alkaline Phosphatase Total Protein Albumin Urine Color Dkyellow Urine Appearance Slcloudy Urine pH 6.0 Ur Specific [place] 1.025 Urine Protein Negative Urine Glucose (UA) Negative Urine Ketones Negative Urine Blood Negative Urine Nitrite Positive Urine Bilirubin Negative Urine Urobilinogen Negative Ur Leukocyte Esterase 2+ H D Urine WBC (Auto) 51 Urine RBC (Auto) 6 Ur Epithelial Cells Few Urine Bacteria Many Urine Mucus Rare RPR Titer PE: ALERT AND ORIENTED SKIN WARM AND DRY CAR S1S2 RESP CTA BL PSYCH +MILD ANXIETY Assessment: 05/21/18 13:40 WITHDRAWAL SYNDROME Plan: CONTINUE DETOX PER PROTOCOL ENCOURAGE ORAL FLUIDS
[2018-05-21] MEDS: IBUPROFEN 400 MG TABLET (FP) PO PRN (22:43)
[2018-05-21] MEDS: THIAMINE HCL 100 MG TABLET (FP) PO SCH (22:43)
[2018-05-21] MEDS: chlordiazePOXIDE 5 MG CAPSULE PO SCH (22:44)
[2018-05-22] MEDS ORDERED: METHADONE HCL 40 MG DISPERSABLE TABLET ONE (04:29)
[2018-05-22] MEDS ORDERED: METHADONE HCL 10 MG TABLET ONE (04:29)
[2018-05-22] MEDS: chlordiazePOXIDE 5 MG CAPSULE PO SCH ×3 (05:44→17:49)
[2018-05-22] MEDS: METHADONE 80 MG, METHADONE 10 MG PO SCH (05:45)
[2018-05-22] MEDS: NICOTINE 14 MG/24 HOURS TOPICAL PATCH TD SCH (12:01)
[2018-05-22] MEDS: PRENATAL VITAMINS W/ FOLIC ACID TABLET (FP) PO SCH (12:01)
--- NOTE | 2018-05-22 13:20 | PN ---
[facility] Progress Note (SOAP) Subjective: Generalized aches, interrupted sleep, tremors and irritability Objective: 05/22/18 13:18 Vital Signs 05/22/18 05/22/18 06:00 10:22 Temperature 97.3 F L 97.9 F Pulse Rate 69 65 Respiratory 18 16 Rate Blood Pressure 140/76 138/77 Laboratory Last Values WBC 3.8 K/mm3 (4.0-10.0) L 05/20/18 07:00 RBC 4.55 M/mm3 (3.60-5.2) 05/20/18 07:00 Hgb 11.9 GM/dL (10.7-15.3) 05/20/18 07:00 Hct 36.9 % (32.4-45.2) 05/20/18 07:00 MCV 81.0 fl (80-96) 05/20/18 07:00 MCH 26.2 pg (25.7-33.7) 05/20/18 07:00 MCHC 32.4 g/dl (32.0-36.0) 05/20/18 07:00 RDW 15.5 % (11.6-15.6) 05/20/18 07:00 Plt Count 235 K/MM3 (134-434) 05/20/18 07:00 MPV 8.3 fl (7.5-11.1) 05/20/18 07:00 Sodium 142 mmol/L (136-145) 05/20/18 07:00 Potassium 4.3 mmol/L (3.5-5.1) 05/20/18 07:00 Chloride 108 mmol/L (98-107) H 05/20/18 07:00 Carbon Dioxide 29 mmol/L (21-32) 05/20/18 07:00 Anion Gap 5 MMOL/L (8-16) L 05/20/18 07:00 BUN 16 mg/dL (7-18) 05/20/18 07:00 Creatinine 0.9 mg/dL (0.55-1.3) 05/20/18 07:00 Creat Clearance w eGFR > 60 (>60) 05/20/18 07:00 Random Glucose 87 mg/dL (74-106) 05/20/18 07:00 Calcium 9.2 mg/dL (8.5-10.1) 05/20/18 07:00 Total Bilirubin 0.3 mg/dL (0.2-1) 05/20/18 07:00 AST 24 U/L (15-37) 05/20/18 07:00 ALT 19 U/L (13-61) 05/20/18 07:00 Alkaline Phosphatase 139 U/L (45-117) H 05/20/18 07:00 Total Protein 7.5 g/dl (6.4-8.2) 05/20/18 07:00 Albumin 3.4 g/dl (3.4-5.0) 05/20/18 07:00 Urine Color Dkyellow 05/21/18 07:00 Urine Appearance Slcloudy 05/21/18 07:00 Urine pH 6.0 (5.0-8.0) 05/21/18 07:00 Ur Specific [place] 1.025 (1.001-1.035) 05/21/18 07:00 Urine Protein Negative (NEGATIVE) 05/21/18 07:00 Urine Glucose (UA) Negative (NEGATIVE) 05/21/18 07:00 Urine Ketones Negative (NEGATIVE) 05/21/18 07:00 Urine Blood Negative (NEGATIVE) 05/21/18 07:00 Urine Nitrite Positive (NEGATIVE) 05/21/18 07:00 Urine Bilirubin Negative (<2.0 mg/dL) 05/21/18 07:00 Urine Urobilinogen Negative mg/dL (0.2-1.0) 05/21/18 07:00 Ur Leukocyte Esterase 2+ (NEGATIVE) H D 05/21/18 07:00 Urine WBC (Auto) 51 /hpf (3-5) 05/21/18 07:00 Urine RBC (Auto) 6 /hpf (0-3) 05/21/18 07:00 Ur Epithelial Cells Few /HPF (FEW) 05/21/18 07:00 Urine Bacteria Many /hpf (NONE SEEN) 05/21/18 07:00 Urine Mucus Rare 05/21/18 07:00 RPR Titer Nonreactive (NONREACTIVE) 05/20/18 07:00 Labs noted UA positive nitrite and leukocyte esterase Possible contamination with noted epithelial cells-patient denies urinary symptoms Assessment: 05/22/18 13:19 Withdrawal sx Possible UTI Plan: Continue detox Repeat UA
[2018-05-22] MEDS: THIAMINE HCL 100 MG TABLET (FP) PO SCH (22:43)
[2018-05-22] MEDS: chlordiazePOXIDE HCL 10 MG CAPSULE PO SCH (22:43)
[2018-05-23] MEDS ORDERED: METHADONE HCL 40 MG DISPERSABLE TABLET ONE (05:03)
[2018-05-23] MEDS ORDERED: METHADONE HCL 10 MG TABLET ONE (05:03)
[2018-05-23] MEDS: chlordiazePOXIDE HCL 10 MG CAPSULE PO SCH ×2 (05:50→12:00)
[2018-05-23] MEDS: METHADONE 80 MG, METHADONE 10 MG PO SCH (05:52)
[2018-05-23] MEDS: NICOTINE 14 MG/24 HOURS TOPICAL PATCH TD SCH (09:30)
[2018-05-23] MEDS: PRENATAL VITAMINS W/ FOLIC ACID TABLET (FP) PO SCH (09:31)
--- NOTE | 2018-05-23 13:02 | HP ---
[facility]INDA [facility] Rehab Assess/Revision - Admission History Admitted to Rehab from: [facility] [place] Date of Admission to Rehab: 05/23/18 - Vital signs Vital Signs: Vital Signs Period Temp Pulse Resp BP Sys/Avila Pulse Ox Last 24 Hr 97.9 F-98.7 F 69-82 16-18 112-152/62-92 - Findings Detox History & Physical reviewed: Yes Concur with findings: Yes Comments/Additional Findings: transferred from detox to rehab admissin as per protocol Inpatient Rehab Admission - Initial Determination Are CD services needed?: Yes Free of communicable disease: Yes Not in need of hospitalization: Yes - Rehab Admission Criteria Previous failed treatment: Yes Poor recovery environment: Yes Comorbidities: Yes Lacks judgement: No Patient is meeting Inpatient Rehab admission criteria:: Yes
[2018-05-23] MEDS: THIAMINE HCL 100 MG TABLET (FP) PO SCH (21:27)
[2018-05-23] MEDS: LIDOCAINE PATCH REMOVAL MC SCH (21:27)
[2018-05-23] MEDS: NAPROXEN 500 MG TABLET (FP) PO SCH (21:27)
[2018-05-24] MEDS ORDERED: METHADONE HCL 10 MG TABLET ONE (03:15)
[2018-05-24] MEDS ORDERED: METHADONE HCL 40 MG DISPERSABLE TABLET ONE (03:15)
[2018-05-24] MEDS: METHADONE 80 MG, METHADONE 10 MG PO SCH (06:29)
--- NOTE | 2018-05-24 09:32 | HP ---
Psychiatrist Admission - Data Date of interview: 05/24/18 Admission source: [address] [place] [address] Identifying data: This is the second admission to [facility] inpatient rehasbilitation for this 53 years old AA single female mother of 1 adult son, [place] [address],supported by [facility]. Medical History: HIV+,Hep C,BA,Chronic denenerative arthritis. Psychiatric History: Patient reports history of depression on and off,no psychiatric treatment.She denies suicidal attempts,no psychiatric hospitalizations reported.She was placed on Zoloft 50 mg po daily by her PCP, continued while bieng in Detox last week.Patient is MMTP (90 mg ). Physical/Sexual Abuse/Trauma History: denies Vital Signs: Vital Signs - 24 hr 05/23/18 05/23/18 05/24/18 09:58 11:35 00:30 Temperature 98.7 F 98.7 F Pulse Rate 69 69 Respiratory 18 18 18 Rate Blood Pressure 112/62 107/64 05/24/18 05/24/18 03:30 07:18 Temperature 98.0 F Pulse Rate 71 Respiratory 18 18 Rate Blood Pressure 145/69 Allergies/Adverse Reactions: Allergies Allergy/AdvReac Type Severity Reaction Status Date / Time No Known Allergies Allergy Verified 05/19/18 18:02 Date of last physical exam: 05/19/18 Concur with the findings of this exam: Yes - Substance Abuse/Tx History Hx Alcohol Use: Yes (reports drinking since 14 yo,heavy derinker since 38 yo, cognac,beer daily) Hx Substance Use: Yes (cocaine/crACK SINCE 16 YO,HEROIN SINCE 17 YO,ON mmtp) Substance Use Type: Alcohol, Cocaine, Heroin Hx Substance Use Treatment: Yes (completed this program in Aug 2016) Mental Status Exam - Mental Status Exam Alert and Oriented to: Time, Place, Person Cognitive Function: Grossly Intact Patient Appearance: Unkempt Mood: Sad, Anxious Affect: Labile Patient Behavior: Cooperative Speech Pattern: Clear Voice Loudness: Normal Thought Process: Goal Oriented Thought Disorder: Not Present Hallucinations: Denies Suicidal Ideation: Denies Homicidal Ideation: Denies Insight/Judgement: Fair Sleep: Fair Appetite: Good Muscle strength/Tone: Normal Gait/Station: Antalgic (Ambulating with walker) Psychiatric Findings - Problem List ([place] 1, 2,3) (1) Substance induced mood disorder Current Visit: Yes Status: Chronic (2) Cocaine dependence Current Visit: Yes Status: Chronic Qualifiers: Substance use status: uncomplicated Qualified Code(s): F14.20 - Cocaine dependence, uncomplicated (3) Degenerative arthritis of right knee Current Visit: Yes Status: Chronic Qualifiers: Osteoarthritis type: unspecified Qualified Code(s): M17.11 - Unilateral primary osteoarthritis, right knee (4) HIV (human immunodeficiency virus infection) Current Visit: Yes Status: Chronic (5) Methadone maintenance therapy patient Current Visit: Yes Status: Chronic (6) Alcohol dependence Current Visit: Yes Status: Chronic (7) Hepatitis C Current Visit: Yes Status: Chronic Qualifiers: Viral hepatitis chronicity: chronic Hepatic coma status: without hepatic coma Qualified Code(s): B18.2 - Chronic viral hepatitis C (8) Asthma Current Visit: Yes Status: Chronic Qualifiers: Asthma severity: mild intermittent (9) Positive PPD, treated Current Visit: Yes Status: Inactive (10) HIV (human immunodeficiency virus infection) Current Visit: Yes Status: Acute (11) Use of cane as ambulatory aid Current Visit: Yes Status: Chronic (12) Frequent falls Current Visit: Yes Status: Chronic (13) Substance-induced sleep disorder Current Visit: Yes Status: Chronic (14) HIV disease Current Visit: Yes Status: Chronic - Initial Treatment Plan Initial Treatment Plan: Continue Zoloft 50 mg po daily.Will monitor progress.
[2018-05-24] MEDS: NAPROXEN 500 MG TABLET (FP) PO SCH ×2 (10:09→21:11)
[2018-05-24] MEDS: LIDOCAINE 5% TOPICAL PATCH TP SCH (10:10)
[2018-05-24] MEDS: NICOTINE 14 MG/24 HOURS TOPICAL PATCH TD SCH (10:10)
[2018-05-24] MEDS: PRENATAL VITAMINS W/ FOLIC ACID TABLET (FP) PO SCH (10:16)
[2018-05-24] MEDS ORDERED: hydrOXYzine PAMOATE 50 MG CAPSULE (FP) PO PRN (10:33)
[2018-05-24] MEDS: SERTRALINE HCL 50 MG TABLET (FP) PO SCH (10:35)
--- NOTE | 2018-05-24 14:47 | PN ---
[facility] Progress Note Note: Vital Signs Temperature 98.0 F 05/24/18 07:18 Pulse Rate 71 05/24/18 07:18 Respiratory Rate 18 05/24/18 07:18 Blood Pressure 145/69 05/24/18 07:18 O2 Sat by Pulse Oximetry (%) Laboratory Last Values WBC 3.8 K/mm3 (4.0-10.0) L 05/20/18 07:00 RBC 4.55 M/mm3 (3.60-5.2) 05/20/18 07:00 Hgb 11.9 GM/dL (10.7-15.3) 05/20/18 07:00 Hct 36.9 % (32.4-45.2) 05/20/18 07:00 MCV 81.0 fl (80-96) 05/20/18 07:00 MCH 26.2 pg (25.7-33.7) 05/20/18 07:00 MCHC 32.4 g/dl (32.0-36.0) 05/20/18 07:00 RDW 15.5 % (11.6-15.6) 05/20/18 07:00 Plt Count 235 K/MM3 (134-434) 05/20/18 07:00 MPV 8.3 fl (7.5-11.1) 05/20/18 07:00 Sodium 142 mmol/L (136-145) 05/20/18 07:00 Potassium 4.3 mmol/L (3.5-5.1) 05/20/18 07:00 Chloride 108 mmol/L (98-107) H 05/20/18 07:00 Carbon Dioxide 29 mmol/L (21-32) 05/20/18 07:00 Anion Gap 5 MMOL/L (8-16) L 05/20/18 07:00 BUN 16 mg/dL (7-18) 05/20/18 07:00 Creatinine 0.9 mg/dL (0.55-1.3) 05/20/18 07:00 Creat Clearance w eGFR > 60 (>60) 05/20/18 07:00 Random Glucose 87 mg/dL (74-106) 05/20/18 07:00 Calcium 9.2 mg/dL (8.5-10.1) 05/20/18 07:00 Total Bilirubin 0.3 mg/dL (0.2-1) 05/20/18 07:00 AST 24 U/L (15-37) 05/20/18 07:00 ALT 19 U/L (13-61) 05/20/18 07:00 Alkaline Phosphatase 139 U/L (45-117) H 05/20/18 07:00 Total Protein 7.5 g/dl (6.4-8.2) 05/20/18 07:00 Albumin 3.4 g/dl (3.4-5.0) 05/20/18 07:00 Urine Color Dkyellow 05/21/18 07:00 Urine Appearance Slcloudy 05/21/18 07:00 Urine pH 6.0 (5.0-8.0) 05/21/18 07:00 Ur Specific [place] 1.025 (1.001-1.035) 05/21/18 07:00 Urine Protein Negative (NEGATIVE) 05/21/18 07:00 Urine Glucose (UA) Negative (NEGATIVE) 05/21/18 07:00 Urine Ketones Negative (NEGATIVE) 05/21/18 07:00 Urine Blood Negative (NEGATIVE) 05/21/18 07:00 Urine Nitrite Positive (NEGATIVE) 05/21/18 07:00 Urine Bilirubin Negative (<2.0 mg/dL) 05/21/18 07:00 Urine Urobilinogen Negative mg/dL (0.2-1.0) 05/21/18 07:00 Ur Leukocyte Esterase 2+ (NEGATIVE) H D 05/21/18 07:00 Urine WBC (Auto) 51 /hpf (3-5) 05/21/18 07:00 Urine RBC (Auto) 6 /hpf (0-3) 05/21/18 07:00 Ur Epithelial Cells Few /HPF (FEW) 05/21/18 07:00 Urine Bacteria Many /hpf (NONE SEEN) 05/21/18 07:00 Urine Mucus Rare 05/21/18 07:00 RPR Titer Nonreactive (NONREACTIVE) 05/20/18 07:00 Patient c/o of bilateral leg swelling and foot fungus. Patient Aox3 no distress, moderately sedated and dosing off during assessment EENT WNL no JVD no adventitious breath sounds full ROM, uses rollator to ambulate skin intact, no erythema, + bilateral non -pitting edema, + callus bilateral and tinea pedis b/t tinea pedis edema opiod dependence on agonist therapy Plan: Patient on methadone 90 mg, currently very sedating, methadone dose decrease to 85 mg for safety concerns re; high fall risk. Discussed with patient and patient in agreement with 85 mg dose starting 05/25/18. TEDS b/l low sodium diet increase fluids ambulate elevate lower extremities continue to monitor
[2018-05-24] MEDS: LIDOCAINE PATCH REMOVAL MC SCH (21:11)
[2018-05-24] MEDS: THIAMINE HCL 100 MG TABLET (FP) PO SCH (21:11)
[2018-05-24] MEDS: TOLNAFTATE 1% CREAM 15 GM TUBE TP SCH (21:13)
[2018-05-25] MEDS ORDERED: METHADONE 80 MG, METHADONE 5 MG PO SCH (06:00)
[2018-05-25] MEDS ORDERED: METHADONE HCL 40 MG DISPERSABLE TABLET PO SCH (06:00)
[2018-05-25] MEDS ORDERED: METHADONE HCL 5 MG TABLET ONE (06:02)
[2018-05-25] MEDS ORDERED: METHADONE HCL 40 MG DISPERSABLE TABLET ONE (06:03)
[2018-05-25] MEDS: LIDOCAINE 5% TOPICAL PATCH TP SCH (09:44)
[2018-05-25] MEDS: NICOTINE 14 MG/24 HOURS TOPICAL PATCH TD SCH (09:44)
[2018-05-25] MEDS: NAPROXEN 500 MG TABLET (FP) PO SCH ×2 (09:44→21:47)
[2018-05-25] MEDS: BACITRACIN 0.9 GM PACKET TP SCH (09:44)
[2018-05-25] MEDS: TOLNAFTATE 1% CREAM 15 GM TUBE TP SCH ×2 (09:45→22:38)
[2018-05-25] MEDS: PRENATAL VITAMINS W/ FOLIC ACID TABLET (FP) PO SCH (09:45)
[2018-05-25] MEDS: SERTRALINE HCL 50 MG TABLET (FP) PO SCH (09:45)
[2018-05-25 10:37] LABS: URINE APPEARANCE CLEAR; URINE BILIRUBIN NEGATIVE (<2.0 mg/dL); URINE COLOR YELLOW; URINE GLUCOSE (UA) NEGATIVE (NEGATIVE); URINE KETONE NEGATIVE (NEGATIVE); URINE LEUK ESTERASE TRACE (NEGATIVE); URINE NITRITE NEGATIVE (NEGATIVE); URINE PROTEIN NEGATIVE (NEGATIVE); URINE UROBILINOGEN NEGATIVE mg/dL (0.2-1.0)
[2018-05-25 10:42] LABS: EPI CELLS FEW /HPF (FEW); URINE BACTERIA RARE /hpf (NONE SEEN); URINE MUCUS RARE
--- NOTE | 2018-05-25 11:59 | PN ---
S Progress Note Note: CALLED TO REPORT THAT THIS PT FELL ON HIS BUTTOCKS WHILE SITTED ON THE CHAIR IN THE DAYROOM. PT WAS SEEN. ENIES HEAD IMPACT DURING FALL EXCEPT BUTTOCKS.DENIES ANY PAIN TO BUTTOCKS OR SPINE/BACK. DENIES LOC. PT WANTS HER METHADONE TIME CHANGED STATING SHE TAKES IT AT 2 PM OUTSIDE AND DOES NOT FEEL SO SLEEPY. Vital Signs 05/25/18 05/25/18 06:55 09:20 Temperature 97.7 F Pulse Rate 65 69 Respiratory 18 Rate Blood Pressure 167/84 142/80 ALERT O X3. NO REDNESS OR SWELLING NOTED. EOMIs INTACT. NO PAIN ON PALPATION OF LOWER UPPER TO LOWER BACK AREAS. AMBULATING WITH WALKER. IMPRESSION:FALL PLAN:FALL PROTOCOL #2 MONITOR PT CHANGE METHADONE MEDICATION TIME TO 2:00 PM DAILY
[2018-05-25] MEDS: LIDOCAINE PATCH REMOVAL MC SCH (21:47)
[2018-05-25] MEDS: THIAMINE HCL 100 MG TABLET (FP) PO SCH (21:47)
[2018-05-26] MEDS: NICOTINE 14 MG/24 HOURS TOPICAL PATCH TD SCH (10:26)
[2018-05-26] MEDS: NAPROXEN 500 MG TABLET (FP) PO SCH ×2 (10:26→21:18)
[2018-05-26] MEDS: BACITRACIN 0.9 GM PACKET TP SCH (10:26)
[2018-05-26] MEDS: SERTRALINE HCL 50 MG TABLET (FP) PO SCH (10:26)
[2018-05-26] MEDS: LIDOCAINE 5% TOPICAL PATCH TP SCH (10:27)
[2018-05-26] MEDS: TOLNAFTATE 1% CREAM 15 GM TUBE TP SCH ×2 (10:27→21:19)
[2018-05-26] MEDS: PRENATAL VITAMINS W/ FOLIC ACID TABLET (FP) PO SCH (10:27)
[2018-05-26] MEDS ORDERED: METHADONE HCL 5 MG TABLET ONE (14:13)
[2018-05-26] MEDS ORDERED: METHADONE HCL 40 MG DISPERSABLE TABLET ONE (14:13)
[2018-05-26] MEDS: METHADONE 80 MG, METHADONE 5 MG PO SCH (14:18)
[2018-05-26] MEDS: THIAMINE HCL 100 MG TABLET (FP) PO SCH (21:18)
[2018-05-26] MEDS: LIDOCAINE PATCH REMOVAL MC SCH (21:19)
[2018-05-27] MEDS: LIDOCAINE 5% TOPICAL PATCH TP SCH (10:09)
[2018-05-27] MEDS: NAPROXEN 500 MG TABLET (FP) PO SCH ×2 (10:09→21:23)
[2018-05-27] MEDS: BACITRACIN 0.9 GM PACKET TP SCH (10:09)
[2018-05-27] MEDS: NICOTINE 14 MG/24 HOURS TOPICAL PATCH TD SCH (10:10)
[2018-05-27] MEDS: PRENATAL VITAMINS W/ FOLIC ACID TABLET (FP) PO SCH (10:11)
[2018-05-27] MEDS: TOLNAFTATE 1% CREAM 15 GM TUBE TP SCH ×2 (10:11→21:23)
[2018-05-27] MEDS: SERTRALINE HCL 50 MG TABLET (FP) PO SCH (10:11)
[2018-05-27] MEDS ORDERED: METHADONE HCL 5 MG TABLET ONE (12:05)
[2018-05-27] MEDS ORDERED: METHADONE HCL 40 MG DISPERSABLE TABLET ONE (12:06)
[2018-05-27] MEDS: METHADONE 80 MG, METHADONE 5 MG PO SCH (13:10)
[2018-05-27] MEDS: THIAMINE HCL 100 MG TABLET (FP) PO SCH (21:23)
[2018-05-27] MEDS: LIDOCAINE PATCH REMOVAL MC SCH (21:23)
[2018-05-27] MEDS ORDERED: PT OWN MED DRAWER 7, Y5N ONE (21:25)
[2018-05-28] MEDS ORDERED: COLLOIDAL OATMEAL 1 BAR EACH TP PRN (09:23)
[2018-05-28] MEDS: BACITRACIN 0.9 GM PACKET TP SCH (10:30)
[2018-05-28] MEDS: TOLNAFTATE 1% CREAM 15 GM TUBE TP SCH ×2 (10:30→21:09)
[2018-05-28] MEDS: NICOTINE 14 MG/24 HOURS TOPICAL PATCH TD SCH (10:31)
[2018-05-28] MEDS: LIDOCAINE 5% TOPICAL PATCH TP SCH (10:31)
[2018-05-28] MEDS: NAPROXEN 500 MG TABLET (FP) PO SCH ×2 (10:31→21:10)
[2018-05-28] MEDS: SERTRALINE HCL 50 MG TABLET (FP) PO SCH (10:31)
[2018-05-28] MEDS: PRENATAL VITAMINS W/ FOLIC ACID TABLET (FP) PO SCH (10:32)
--- NOTE | 2018-05-28 13:34 | PN ---
[facility] Progress Note Note: C/O DRY SKINE AND WANTS CHANGE OF SOAP. REQUESTING CANE FOR AMBULATION. MEANWHILE PT USING WHEELCHAIR TO GET AROUND. PT ALSO HAS OWN WALKER. OBTAIN CANE DIRECTED. AVEENO SOAP DAILY FOR HYGIENE
[2018-05-28] MEDS ORDERED: METHADONE HCL 5 MG TABLET ONE (14:12)
[2018-05-28] MEDS ORDERED: METHADONE HCL 40 MG DISPERSABLE TABLET ONE (14:12)
[2018-05-28] MEDS: METHADONE 80 MG, METHADONE 5 MG PO SCH (14:20)
[2018-05-28] MEDS: LIDOCAINE PATCH REMOVAL MC SCH (21:10)
[2018-05-28] MEDS: THIAMINE HCL 100 MG TABLET (FP) PO SCH (21:10)
[2018-05-29] MEDS: BACITRACIN 0.9 GM PACKET TP SCH (10:03)
[2018-05-29] MEDS: NICOTINE 14 MG/24 HOURS TOPICAL PATCH TD SCH (10:03)
[2018-05-29] MEDS: NAPROXEN 500 MG TABLET (FP) PO SCH ×2 (10:03→22:12)
[2018-05-29] MEDS: LIDOCAINE 5% TOPICAL PATCH TP SCH (10:03)
[2018-05-29] MEDS: SERTRALINE HCL 50 MG TABLET (FP) PO SCH (10:03)
[2018-05-29] MEDS: TOLNAFTATE 1% CREAM 15 GM TUBE TP SCH ×2 (10:04→22:12)
[2018-05-29] MEDS: PRENATAL VITAMINS W/ FOLIC ACID TABLET (FP) PO SCH (10:04)
[2018-05-29] MEDS ORDERED: METHADONE HCL 5 MG TABLET ONE (13:23)
[2018-05-29] MEDS: METHADONE 80 MG, METHADONE 5 MG PO SCH (13:24)
[2018-05-29] MEDS ORDERED: METHADONE HCL 40 MG DISPERSABLE TABLET ONE (13:24)
[2018-05-29] MEDS: THIAMINE HCL 100 MG TABLET (FP) PO SCH (22:11)
[2018-05-29] MEDS: LIDOCAINE PATCH REMOVAL MC SCH (22:12)
[2018-05-30] MEDS: LIDOCAINE 5% TOPICAL PATCH TP SCH (10:01)
[2018-05-30] MEDS: TOLNAFTATE 1% CREAM 15 GM TUBE TP SCH ×2 (10:01→21:14)
[2018-05-30] MEDS: SERTRALINE HCL 50 MG TABLET (FP) PO SCH (10:01)
[2018-05-30] MEDS: BACITRACIN 0.9 GM PACKET TP SCH (10:01)
[2018-05-30] MEDS: NICOTINE 14 MG/24 HOURS TOPICAL PATCH TD SCH (10:01)
[2018-05-30] MEDS: NAPROXEN 500 MG TABLET (FP) PO SCH ×2 (10:01→21:14)
[2018-05-30] MEDS: PRENATAL VITAMINS W/ FOLIC ACID TABLET (FP) PO SCH (10:02)
[2018-05-30] MEDS ORDERED: METHADONE HCL 5 MG TABLET ONE (13:44)
[2018-05-30] MEDS ORDERED: METHADONE HCL 40 MG DISPERSABLE TABLET ONE (13:44)
[2018-05-30] MEDS: METHADONE 80 MG, METHADONE 5 MG PO SCH (13:49)
[2018-05-30] MEDS: THIAMINE HCL 100 MG TABLET (FP) PO SCH (21:13)
[2018-05-30] MEDS: LIDOCAINE PATCH REMOVAL MC SCH (21:15)
[2018-05-31] MEDS ORDERED: MINERAL OIL/PETROLAT/WATER TOPICAL CREAM 113 GM JAR TP PRN (09:19)
[2018-05-31] MEDS: BACITRACIN 0.9 GM PACKET TP SCH (10:21)
[2018-05-31] MEDS: LIDOCAINE 5% TOPICAL PATCH TP SCH (10:22)
[2018-05-31] MEDS: NAPROXEN 500 MG TABLET (FP) PO SCH ×2 (10:22→21:46)
[2018-05-31] MEDS: NICOTINE 14 MG/24 HOURS TOPICAL PATCH TD SCH (10:22)
[2018-05-31] MEDS: PRENATAL VITAMINS W/ FOLIC ACID TABLET (FP) PO SCH (10:22)
[2018-05-31] MEDS: SERTRALINE HCL 50 MG TABLET (FP) PO SCH (10:22)
[2018-05-31] MEDS: TOLNAFTATE 1% CREAM 15 GM TUBE TP SCH ×2 (10:23→21:47)
--- NOTE | 2018-05-31 13:58 | PN ---
[facility] Progress Note Note: Vital Signs Temperature 97.9 F 05/31/18 06:34 Pulse Rate 62 05/31/18 06:34 Respiratory Rate 18 05/31/18 06:34 Blood Pressure 157/73 05/31/18 06:34 O2 Sat by Pulse Oximetry (%) Methadone dose renewal for 85 mg, continue to monitor. HCTZ 25 mg for BP ordered, patient reports taking this medication, last time she took med was about two weeks ago. Reports taking neurontin 300 mg TID for nerve pain. No hx found patient taking this medication, patient at times sedated after taking methadone, neurontin not appropriate at this time d/t fall risk. Continue to monitor. Patient stable, scheduled for discharge Thursday06/02/18, aptient follow up with PCP Dr. Oh and scheduled as per patient right knee replacement 06/21/18.
[2018-05-31] MEDS ORDERED: METHADONE HCL 10 MG TABLET PO SCH (14:00)
[2018-05-31] MEDS ORDERED: METHADONE 80 MG, METHADONE 5 MG PO SCH (14:15)
[2018-05-31] MEDS ORDERED: METHADONE HCL 5 MG TABLET ONE (14:38)
[2018-05-31] MEDS ORDERED: METHADONE HCL 40 MG DISPERSABLE TABLET ONE (14:39)
[2018-05-31] MEDS: LIDOCAINE PATCH REMOVAL MC SCH (21:47)
[2018-05-31] MEDS: THIAMINE HCL 100 MG TABLET (FP) PO SCH (21:47)
[2018-06-01] MEDS: BACITRACIN 0.9 GM PACKET TP SCH (09:37)
[2018-06-01] MEDS: LIDOCAINE 5% TOPICAL PATCH TP SCH (09:38)
[2018-06-01] MEDS: NAPROXEN 500 MG TABLET (FP) PO SCH ×2 (09:38→21:43)
[2018-06-01] MEDS: HYDROCHLOROTHIAZIDE 25 MG TABLET (FP) PO SCH (09:38)
[2018-06-01] MEDS: NICOTINE 14 MG/24 HOURS TOPICAL PATCH TD SCH (09:38)
[2018-06-01] MEDS: PRENATAL VITAMINS W/ FOLIC ACID TABLET (FP) PO SCH (09:39)
[2018-06-01] MEDS: TOLNAFTATE 1% CREAM 15 GM TUBE TP SCH ×2 (09:39→21:43)
[2018-06-01] MEDS: SERTRALINE HCL 50 MG TABLET (FP) PO SCH (09:39)
[2018-06-01] MEDS ORDERED: METHADONE HCL 5 MG TABLET ONE (13:33)
[2018-06-01] MEDS ORDERED: METHADONE HCL 40 MG DISPERSABLE TABLET ONE (13:33)
[2018-06-01] MEDS ORDERED: METHADONE 80 MG, METHADONE 5 MG PO SCH (14:00)
[2018-06-01] MEDS: LIDOCAINE PATCH REMOVAL MC SCH (21:43)
[2018-06-01] MEDS: THIAMINE HCL 100 MG TABLET (FP) PO SCH (21:43)
[2018-06-02 06:52] VITALS: BP 155/78; PULSE 57; TEMP 97.9
[2018-06-02] MEDS ORDERED: METHADONE HCL 40 MG DISPERSABLE TABLET ONE (08:50)
[2018-06-02] MEDS ORDERED: METHADONE HCL 5 MG TABLET ONE (08:50)
[2018-06-02] MEDS ORDERED: PT OWN MED DRAWER 7, Y5N ONE (08:52)
--- NOTE | 2018-06-02 09:00 | PN ---
Psychiatric Progress Note Vital Signs: Vital Signs Period Temp Pulse Resp BP Sys/Avila Pulse Ox Last 24 Hr 97.9 F-98.1 F 57-60 17-18 155-170/75-78 Date of Session: 06/02/18 Chief Complaint:: Discharge visit HPI: Cocaine,alcohol and opioid dependence comorbid with substance induced mood disorder. ROS: Significant for HIV+,Arthritis,BA,Hep C. Current Medications: Active Medications Generic Name Dose Route Start Last Admin Trade Name Freq PRN Reason Stop Dose Admin Acetaminophen 650 mg 05/19/18 20:26 Tylenol - PO Q4H PRN FEVER Al Hydroxide/Mg Hydroxide 30 ml 05/19/18 20:26 Mylanta Oral Suspension - PO Q6H PRN DYSPEPSIA Bacitracin 0.9 gm 05/25/18 10:00 06/01/18 09:37 Bacitracin - TP 0.9 gm DAILY DUTCH Administration Eucalyptus/Menthol/Phenol/Sorbitol 1 each 05/19/18 20:26 Cepastat Lozenge - MM Q4H PRN SORE THROAT Guaifenesin 10 ml 05/19/18 20:26 Robitussin Dm - PO Q6H PRN COUGH Hydrochlorothiazide 25 mg 06/01/18 10:00 06/01/18 09:38 Hctz - PO 25 mg DAILY DUTCH Administration Hydroxyzine Pamoate 50 mg 05/24/18 10:33 Vistaril - PO Q4H PRN ANXIETY Lidocaine 1 patch 05/24/18 10:00 06/01/18 09:38 Lidoderm Patch - TP 1 patch DAILY DUTCH Administration Loperamide HCl 4 mg 05/19/18 20:26 Imodium - PO Q6H PRN DIARRHEA Magnesium Citrate 300 ml 05/19/18 20:26 Citroma - PO Q48H PRN CONSTIPATION Magnesium Hydroxide 30 ml 05/19/18 20:26 Milk Of Magnesia - PO DAILY PRN CONSTIPATION Melatonin 5 mg 05/19/18 22:00 05/23/18 21:27 Melatonin PO 5 mg HS PRN Administration INSOMNIA Methadone HCl 80 mg/ Methadone 85 mg 06/02/18 10:00 HCl 5 mg PO DAILY@1000 DUTCH Miscellaneous 1 each 05/23/18 22:00 06/01/18 21:43 Lidoderm Patch Removal MC 1 each DAILY@2200 DUTCH Administration Multi-Ingredient Lotion 1 applic 05/31/18 09:19 Eucerin (Small Jar) - TP DAILY PRN DRY SKIN Naproxen 500 mg 05/23/18 22:00 06/01/18 21:43 Naprosyn - PO 500 mg BID DUTCH Administration Nicotine 14 mg 05/20/18 10:00 06/01/18 09:38 Nicoderm Patch - TD 14 mg DAILY DUTCH Administration Nicotine Polacrilex 2 mg 05/19/18 20:26 Nicorette Gum - BUC Q2H PRN NICOTINE REPLACEMENT RX Multivit/Folic Acid/Iron 1 tab 05/20/18 10:00 06/01/18 09:39 Vitamins (Sjr) - PO 1 tab DAILY DUTCH Administration Pseudoephedrine/Triprolidine 1 combo 05/19/18 20:26 Actifed - PO TID PRN NASAL CONGESTION Sertraline HCl 50 mg 05/24/18 10:45 06/01/18 09:39 Zoloft - PO 50 mg DAILY DUTCH Administration Thiamine HCl 100 mg 05/19/18 22:00 06/01/18 21:43 Vitamin B1 - PO 100 mg HS DUTCH Administration Tolnaftate 1 applic 05/24/18 22:00 06/01/18 21:43 Tinactin 1% Cream - TP Not Given BID DUTCH Current Side Effect: No Lab tests ordered: No Lab tests reviewed: Yes Provider note:: Patient completed this program today.She ahs met her treatment goals and will continue to address her issues on outpatient basis at [facility].Patient reports finding that current medications including Zoloft 50 mg po daily and Trazodone 50 mg po hs help to cope with depressed mood,insomnia,anxiety.scripts for 30 days provided. supportive therapy provided focusing on relapse prevention.patient is stable for discharge today. Total face to face time:: 30 Mental Status Exam - Mental Status Exam Alert and Oriented to: Time, Place, Person Cognitive Function: Grossly Intact Patient Appearance: Well Groomed Mood: Hopeful, Euthymic Affect: Appropriate, Mood Congruent Patient Behavior: Cooperative Speech Pattern: Clear Voice Loudness: Normal Thought Process: Goal Oriented Thought Disorder: Not Present Hallucinations: Denies Suicidal Ideation: Denies Homicidal Ideation: Denies Insight/Judgement: Fair Sleep: Fair Appetite: Good Muscle strength/Tone: Normal Gait/Station: Normal Psychiatric Treatment Plan - Problem List (1) Substance induced mood disorder Current Visit: Yes (2) Cocaine dependence Current Visit: Yes Qualifiers: Substance use status: uncomplicated Qualified Code(s): F14.20 - Cocaine dependence, uncomplicated (3) Degenerative arthritis of right knee Current Visit: Yes Qualifiers: Osteoarthritis type: unspecified Qualified Code(s): M17.11 - Unilateral primary osteoarthritis, right knee (4) HIV (human immunodeficiency virus infection) Current Visit: Yes (5) Methadone maintenance therapy patient Current Visit: Yes (6) Alcohol dependence Current Visit: Yes (7) Hepatitis C Current Visit: Yes Qualifiers: Viral hepatitis chronicity: chronic Hepatic coma status: without hepatic coma Qualified Code(s): B18.2 - Chronic viral hepatitis C (8) Asthma Current Visit: Yes Qualifiers: Asthma severity: unspecified severity (9) Positive PPD, treated Current Visit: Yes (10) HIV (human immunodeficiency virus infection) Current Visit: Yes (11) Use of cane as ambulatory aid Current Visit: Yes (12) Frequent falls Current Visit: Yes (13) Substance-induced sleep disorder Current Visit: Yes (14) HIV disease Current Visit: Yes
[2018-06-02] MEDS ORDERED: METHADONE 80 MG, METHADONE 5 MG PO SCH (10:00)
[2018-06-02] MEDS: HYDROCHLOROTHIAZIDE 25 MG TABLET (FP) PO SCH (10:27)
[2018-06-02] MEDS: TOLNAFTATE 1% CREAM 15 GM TUBE TP SCH (10:27)
[2018-06-02] MEDS: BACITRACIN 0.9 GM PACKET TP SCH (10:27)
[2018-06-02] MEDS: NAPROXEN 500 MG TABLET (FP) PO SCH (10:27)
[2018-06-02] MEDS: SERTRALINE HCL 50 MG TABLET (FP) PO SCH (10:27)
[2018-06-02] MEDS: NICOTINE 14 MG/24 HOURS TOPICAL PATCH TD SCH (10:28)
[2018-06-02] MEDS: LIDOCAINE 5% TOPICAL PATCH TP SCH (10:28)
[2018-06-02] MEDS: PRENATAL VITAMINS W/ FOLIC ACID TABLET (FP) PO SCH (10:28)
== END 2018-06-02 11:06 | disposition home or self-care (01) | DRG 895 ==
LOC: YASAS 14:01 → Y6N 19:42 → Y3E 05-23 11:08
PROVIDERS: ATTEND Psychiatry & Neurology Psychiatry
PROC: HZ2ZZZZ Detoxification Services for Substance Abuse Treatment (ICD-10-PCS; principal; 2018-05-19)
PROC: HZ42ZZZ Group Counseling for Substance Abuse Treatment, Cognitive-Behavioral (ICD-10-PCS; 2018-05-23)
DX: F10.230 Alcohol dependence with withdrawal, uncomplicated (principal); F11.20 Opioid dependence, uncomplicated; F14.20 Cocaine dependence, uncomplicated; F19.282 Other psychoactive substance dependence with psychoactive substance-induced sleep disorder; F17.210 Nicotine dependence, cigarettes, uncomplicated; F19.24 Other psychoactive substance dependence with psychoactive substance-induced mood disorder; J45.909 Unspecified asthma, uncomplicated; Z21 Asymptomatic human immunodeficiency virus [HIV] infection status; R60.0 Localized edema; B18.2 Chronic viral hepatitis C; R76.11 Nonspecific reaction to tuberculin skin test without active tuberculosis; L98.8 Other specified disorders of the skin and subcutaneous tissue; B35.3 Tinea pedis; R29.6 Repeated falls; R26.2 Difficulty in walking, not elsewhere classified; Z99.89 Dependence on other enabling machines and devices; W07.XXXA Fall from chair, initial encounter; Z91.81 History of falling; Y93.89 Activity, other specified; Y92.238 Other place in hospital as the place of occurrence of the external cause
CPT/HCPCS: 36415; 71046-TC-FY; 80053; 81003; 81015; 85027; 86593; 93005; 93010

== ENCOUNTER 2022-12-14 09:16 | Inpatient (IN) | payer OTHER ==
[2022-12-14 10:20] VITALS: BMI 25.4
[2022-12-14] MEDS ORDERED: NALOXONE HCL (KLOXXADO) 8 MG SPRAY NS PRN (10:37)
[2022-12-14] MEDS ORDERED: IBUPROFEN 400 MG TABLET (FP) PO PRN (10:37)
[2022-12-14] MEDS ORDERED: MAGNESIUM HYDROX 2400MG/30ML ORAL SUSPENSION 30 ML CUP PO PRN (10:37)
[2022-12-14] MEDS ORDERED: IBUPROFEN 600 MG TABLET (FP) PO PRN (10:37)
[2022-12-14] MEDS ORDERED: ONDANSETRON *ODT* 4 MG TABLET SL PRN (10:37)
[2022-12-14] MEDS ORDERED: NALOXONE HCL 0.4 MG/ML VIAL IM PRN (10:37)
[2022-12-14] MEDS ORDERED: ACETAMINOPHEN 325 MG TABLET (FP) PO PRN (10:37)
[2022-12-14] MEDS ORDERED: guaiFENesin 600 MG TABLET.ER (FP) PO PRN (10:37)
[2022-12-14] MEDS ORDERED: BENZOCAINE/MENTHOL (CHLORASEPTIC ) LOZENGE MM PRN (10:37)
[2022-12-14] MEDS ORDERED: NICOTINE 10 MG CARTRIDGE (INHALER) IH PRN (10:37)
[2022-12-14] MEDS ORDERED: LOPERAMIDE HCL 2 MG CAPSULE PO PRN (10:37)
[2022-12-14] MEDS ORDERED: BENZONATATE 200 MG CAPSULE PO PRN (10:37)
[2022-12-14] MEDS ORDERED: BISMUTH SUBSALICYLATE 524 MG/30 ML PO PRN (10:37)
[2022-12-14] MEDS ORDERED: DICYCLOMINE HCL 10 MG CAPSULE PO PRN (10:37)
[2022-12-14] MEDS ORDERED: MAG HYDROX/AL HYDROX/SIMETH 30 ML UNIT-DOSE CUP PO PRN (10:37)
[2022-12-14] MEDS ORDERED: POLYETHYLENE GLYCOL (HEALTHYLAX) 3350 17 GM PACKET PO PRN (10:37)
[2022-12-14] MEDS: hydrOXYzine PAMOATE 25 MG CAPSULE (FP) PO PRN (18:16)
[2022-12-14] MEDS: cloNIDine HCL 0.1 MG TABLET PO PRN ×2 (18:16→22:37)
[2022-12-14] MEDS ORDERED: methaDONE HCL 10 MG TABLET PO ONE (18:30)
[2022-12-14] MEDS: METHOCARBAMOL 500 MG TABLET PO PRN (22:37)
[2022-12-14] MEDS: MELATONIN 5 MG TABLETS PO SCH (22:55)
[2022-12-14] MEDS: THIAMINE HCL 100 MG TABLET (FP) PO SCH (22:55)
[2022-12-15] MEDS: cloNIDine HCL 0.1 MG TABLET PO PRN ×4 (06:36→22:22)
[2022-12-15] MEDS ORDERED: EMTRICITAB/RILPIVIRINE/TENOFOV 1 EACH TABLET PO SCH (10:00)
[2022-12-15] MEDS: PRENATAL VITAMINS W/ FOLIC ACID TABLET (FP) PO SCH (10:20)
[2022-12-15] MEDS: SPIRONOLACTONE 25 MG TABLET PO SCH ×2 (10:20→18:00)
[2022-12-15] MEDS: EMTRICITAB/RILPIVIRI/TENOF ALA (ODEFSEY) TABLET PO SCH (10:20)
[2022-12-15 11:37] LABS: BLOOD UREA NITROGEN 9.9 mg/dL (7-18); CALCIUM 8.8 mg/dL (8.5-10.1)
[2022-12-15 11:39] LABS: HEMATOCRIT 31.6 % (32.4-45.2); HEMOGLOBIN 10.8 GM/dL (10.7-15.3); MCHC 34.2 g/dl (32.0-36.0); MEAN PLT VOLUME 8.4 fl (7.5-11.1); PLATELET COUNT 218 10^3/uL (134-434); RDW 16.9 % (11.6-15.6)
[2022-12-15 11:40] LABS: CREATININE 0.7 mg/dL (0.55-1.3)
[2022-12-15 11:42] LABS: BILIRUBIN,TOTAL 0.5 mg/dL (0.2-1); TOT PROT 7.2 g/dl (6.4-8.2)
[2022-12-15] MEDS: hydrOXYzine PAMOATE 25 MG CAPSULE (FP) PO PRN (12:56)
[2022-12-15] MEDS: HYDROCHLOROTHIAZIDE 25 MG TABLET (FP) PO SCH (15:14)
[2022-12-15] MEDS: NAPROXEN 500 MG TABLET PO SCH (22:22)
[2022-12-15] MEDS: THIAMINE HCL 100 MG TABLET (FP) PO SCH (22:22)
[2022-12-15] MEDS: MELATONIN 5 MG TABLETS PO SCH (22:22)
[2022-12-16] MEDS: cloNIDine HCL 0.1 MG TABLET PO PRN ×4 (06:22→22:28)
[2022-12-16] MEDS: EMTRICITAB/RILPIVIRI/TENOF ALA (ODEFSEY) TABLET PO SCH (07:18)
[2022-12-16] MEDS ORDERED: methaDONE HCL 10 MG TABLET (FOR DETOX USE ONLY) PO ONE (10:00)
[2022-12-16] MEDS: HYDROCHLOROTHIAZIDE 25 MG TABLET (FP) PO SCH (10:22)
[2022-12-16] MEDS: NAPROXEN 500 MG TABLET PO SCH ×2 (10:22→22:28)
[2022-12-16] MEDS: SPIRONOLACTONE 25 MG TABLET PO SCH ×2 (10:23→18:03)
[2022-12-16] MEDS: PRENATAL VITAMINS W/ FOLIC ACID TABLET (FP) PO SCH (10:24)
[2022-12-16] MEDS ORDERED: HYDROCHLOROTHIAZIDE 25 MG TABLET (FP) PO ONE (19:30)
[2022-12-16] MEDS: MELATONIN 5 MG TABLETS PO SCH (22:28)
[2022-12-16] MEDS: THIAMINE HCL 100 MG TABLET (FP) PO SCH (22:28)
[2022-12-17] MEDS: METHOCARBAMOL 500 MG TABLET PO PRN ×2 (06:10→22:53)
[2022-12-17] MEDS: hydrOXYzine PAMOATE 25 MG CAPSULE (FP) PO PRN ×2 (06:10→17:42)
[2022-12-17] MEDS ORDERED: cloNIDine HCL 0.1 MG TABLET PO ONE (06:59)
[2022-12-17] MEDS: EMTRICITAB/RILPIVIRI/TENOF ALA (ODEFSEY) TABLET PO SCH (07:31)
[2022-12-17] MEDS: HYDROCHLOROTHIAZIDE 25 MG TABLET (FP) PO SCH (09:52)
[2022-12-17] MEDS: PRENATAL VITAMINS W/ FOLIC ACID TABLET (FP) PO SCH (09:52)
[2022-12-17] MEDS: SPIRONOLACTONE 25 MG TABLET PO SCH ×2 (09:53→17:41)
[2022-12-17] MEDS: NAPROXEN 500 MG TABLET PO SCH ×2 (09:57→22:53)
[2022-12-17] MEDS: THIAMINE HCL 100 MG TABLET (FP) PO SCH (22:53)
[2022-12-17] MEDS: MELATONIN 5 MG TABLETS PO SCH (22:53)
[2022-12-18] MEDS: hydrOXYzine PAMOATE 25 MG CAPSULE (FP) PO PRN (01:28)
[2022-12-18] MEDS: amLODIPine BESYLATE 10 MG TABLET (FP) PO SCH ×2 (06:06→10:12)
[2022-12-18] MEDS: METHOCARBAMOL 500 MG TABLET PO PRN ×2 (06:08→17:36)
[2022-12-18] MEDS: EMTRICITAB/RILPIVIRI/TENOF ALA (ODEFSEY) TABLET PO SCH (07:39)
[2022-12-18] MEDS ORDERED: methaDONE HCL 10 MG TABLET (FOR DETOX USE ONLY) PO ONE (10:00)
[2022-12-18] MEDS: NAPROXEN 500 MG TABLET PO SCH (10:11)
[2022-12-18] MEDS: HYDROCHLOROTHIAZIDE 25 MG TABLET (FP) PO SCH (10:11)
[2022-12-18] MEDS: PRENATAL VITAMINS W/ FOLIC ACID TABLET (FP) PO SCH (10:11)
[2022-12-18] MEDS: SPIRONOLACTONE 25 MG TABLET PO SCH ×2 (10:11→17:35)
[2022-12-18 13:42] VITALS: RESP 18
[2022-12-18] MEDS ORDERED: cloNIDine HCL 0.1 MG TABLET PO ONE (14:42)
[2022-12-18 18:00] VITALS: TEMP 97.1
[2022-12-18 19:39] VITALS: BP 113/77; PULSE 91
[2022-12-18] MEDS ORDERED: MELATONIN 5 MG TABLETS PO SCH (22:00)
== END 2022-12-18 17:55 | disposition home or self-care (01) | DRG 897 ==
LOC: YASAS 09:16 → Y3N 12:00
PROVIDERS: ADMIT Allergy & Immunology; ATTEND Surgery
PROC: HZ2ZZZZ Detoxification Services for Substance Abuse Treatment (ICD-10-PCS; principal; 2022-12-14)
DX: F11.23 Opioid dependence with withdrawal (principal); F14.20 Cocaine dependence, uncomplicated; F17.210 Nicotine dependence, cigarettes, uncomplicated; Z21 Asymptomatic human immunodeficiency virus [HIV] infection status; E78.2 Mixed hyperlipidemia; I10 Essential (primary) hypertension; M17.0 Bilateral primary osteoarthritis of knee; M54.50 Low back pain, unspecified; R60.0 Localized edema; Z86.19 Personal history of other infectious and parasitic diseases
CPT/HCPCS: 36415; 71046-TC-FY; 80053; 85027; 86780; 93005; 93010; C9803-CS; U0003; U0005